=== PATIENT | female | born 1985 | race Caucasian/White ===

== ENCOUNTER → 2017-08-14 | Outpatient (CLI) | payer MEDICAID ==
--- NOTE | 2017-08-17 08:58 | MM ---
Reason for exam: screening (asymptomatic). Baseline mammogram. History: Family history of breast cancer in paternal aunt. Physical Findings: Nurse did not find any significant physical abnormalities on exam. MG 3D Diag Mammo W/Cad NATASHA Bilateral CC and MLO view(s) were taken. There are scattered fibroglandular densities. Asymmetric skin thickening left breast. These results were verbally communicated with the patient and result sheet given to the patient on 08/14/17. ASSESSMENT: Suspicious, BI-RAD 4 RECOMMENDATION: Surgical consultation of the left breast. Called Dr. Lake with mammographic findings and has scheduled an appointment for the patient for 08/20/17 at 3:[address] Valentin. PRELIMINARY REPORT CALLED AND FAXED TO DR. VALENTIN ON 08/17/17.
== END | disposition home or self-care (01) ==
LOC: RADMAMWWP 08:44
PROVIDERS: ATTEND Obstetrics & Gynecology
DX: N61.0 Mastitis without abscess (principal); Z80.3 Family history of malignant neoplasm of breast
CPT/HCPCS: 77062; 77066

== ENCOUNTER → 2017-08-20 | Outpatient (CLI) | payer MEDICAID ==
[2017-08-20 15:18] VITALS: BP 118/67; PULSE 80; BMI 35.9
--- NOTE | 2017-08-20 16:27 | P.GSHP ---
History of Present Illness H&P Date: 08/20/17 Patient states she noted a red spot in her left breast and the skin has gotten thicker and is not red at this time. The patient denies any pain or pruritus at this site. It is been present for several months. She states that it is located right at the area where her bra rubs. She has no changes in the right breast. The patient denies any masses or lumps in her breasts. A bilateral mammogram was performed which revealed some skin thickening in the left but no dominant masses or nodules of concern. The patient has had a history of acne on her breast in the past. Wnomexx-rjyp-ovyrrbiun-every-day,- additionally-patient drinks coffee several times a month, she does not drink sodas nor drink tea. The patient does not smoke nor she exposed to secondhand smoke. family history: Paternal aunt breast cancer in her 50s Paternal cousin breast cancer in her 40s Menarche: 18 Pregnancies: 1 at age 28 she did not breast feed BCP: Patient was on control pills from [age], she was off for about a year, with the of her daughter: she was put back on at 28 to help with acne and for control- she was on for 3 years, patient gained weight and therefore stopped the BCP; she subsequently lost 30 pounds. That was at the age of 31. At 31 she went back on BCP for approximately 5 months and during that time gained 20 pounds she therefore recently stopped again and over the last month has lost 5 pounds. Past surgical history: 1. dermoid cyst removed from right ovary, the ovary removed Past medical history: 1. Scoliosis 2. cyst on the left ovary at times Social history: 1. Smoking: Negative 2. Alcohol: Negative 3. Drugs: Negative - Constitutional Constitutional: Denies chills, Denies fever - EENT Eyes: denies blurred vision, denies pain Ears: deny: decreased hearing, tinnitus - Breasts Breasts: bilateral: as per HPI - Cardiovascular Cardiovascular: Denies chest pain, Denies shortness of breath - Respiratory Respiratory: Denies cough, Denies 7 - Gastrointestinal Gastrointestinal: Denies abdominal pain, Denies diarrhea, Denies nausea, Denies vomiting - Genitourinary (Female) Genitourinary: Denies dysuria, Denies hematuria - Menstruation Comment: irregular sporadic since she is off control pills - Musculoskeletal Musculoskeletal: Denies myalgias - Integumentary Integumentary: Reports as per HPI - Neurological Neurological: Denies numbness, Denies weakness - Psychiatric Psychiatric: Denies anxiety, Denies depression - Endocrine Endocrine: Denies fatigue, Denies weight change - Hematologic/Lymphatic Comment: none - Allergic/Immunologic Allergic/Immunologic: Reports seasonal allergies Past Medical History Past Medical History: No Reported History Additional Past Medical History / Comment(s): scoliosis. Obstetric history: This is her first and she has had care with Dr Patel since 9 weeks gestation. A neg, abs neg, Rub imm, RPR NR, Hep B neg, toxo neg. Normal anatomy US at 19 weeks. Normal 1hr GTT, rhogam given 08-18-13. right ovary removed (dermoid cyst) 2010 History of Any Multi-Drug Resistant Organisms: None Reported Past Surgical History: No Surgical Hx Reported Additional Past Surgical History / Comment(s): oopherectomy-dermoid Past Anesthesia/Blood Transfusion Reactions: No Reported Reaction Past Psychological History: No Psychological Hx Reported Smoking Status: Never smoker Past Alcohol Use History: None Reported Past Drug Use History: None Reported - Past Family History Mother Family Medical History: Hyperlipidemia, Thyroid Disorder Additional Family Medical History / Comment(s): endeometrosis uterus removed at age 32 Father Brother(s) Family Medical History: Diabetes Mellitus Medications and Allergies Home Medications Medication Instructions Recorded Confirmed Type Ibuprofen [Motrin] 600 mg PO Q6HR PRN #30 tab 10/13/15 08/20/17 Rx Allergies Allergy/AdvReac Type Severity Reaction Status Date / Time No Known Allergies Allergy Verified 10/12/15 23:38 Surgical - Exam Vital Signs Pulse BP Pulse Ox 80 118/67 97 08/20/17 15:13 08/20/17 15:13 08/20/17 15:13 - General obese - Eyes normal ocular movement - ENT no hearing loss, no congestion - Neck no masses, trachea midline - Respiratory normal respiratory effort, clear to auscultation - Cardiovascular Rhythm: regular Heart Sounds: normal: S1, S2 - Abdomen Abdomen: soft, non tender, no guarding, no rigid, no rebound - Integumentary Thickening of the skin the the inferior aspect of the nipple areolar complex on the left at 6:00 this series a proximally 5 cm x 3 cm in size there is no erythema but there appears to be prominence of the pores giving an orange peel appearance - Neurologic no disoriented, no combative - Psychiatric oriented to time, oriented to person, oriented to place, speech is normal, memory intact Breast examination: Right breast: Multiple positional exam no dominant masses or nodules of concern Right axilla: No adenopathy of concern Left breast: Multiple positional exam no dominant masses or nodules of concern within the breast however there is thickening of the skin at the inferior aspect in the 6:00 Left axilla: No adenopathy of concern Results Mammogram reviewed, thickening of skin in the inferior aspect of the breast Assessment and Plan Assessment: Impression/plan: 1. Thickening of the inferior skin on the left breast 2. Fibrocystic breast changes 3. Irregular periods Plan: 1. punch biopsy of the skin of the left breast 2. Depending on results of above further recommendation to follow Risk and benefits of punch biopsy were discussed with the patient and her . And they wish to proceed. Cc: Dr. Lake, Dr. Greg Ruiz
--- NOTE | 2017-08-20 16:30 | P.OP ---
Date of Procedure: 08/20/17 Preoperative Diagnosis: Thickening of skin in the inferior periareolar aspect of the left breast approximately 6:00 Postoperative Diagnosis: same Procedure(s) Performed: Punch biopsy skin of the breast Anesthesia: local Surgeon: Gina Valentin Estimated Blood Loss (ml): 0 Pathology: other (Skin of the breast) Condition: stable Disposition: same day Indications for Procedure: 32-year-old white female who presented with thickened skin in the inferior periareolar area of the left breast at 6:00 Operative Findings: Thickened skin Description of Procedure: Risk and benefits of punch biopsy of the skin were discussed with the patient and her . The skin was prepped using Betadine. 1% lidocaine was used to anesthetize the area of concern. A 4 mm punch biopsy was used to obtain a full-thickness sample of skin. This was removed and sent to pathology. The skin was then closed using a 4-0 nylon suture. The patient tolerated the procedure in stable condition.
== END | disposition home or self-care (01) ==
LOC: WWCWWP 15:05
PROVIDERS: ATTEND Surgery
DX: N60.32 Fibrosclerosis of left breast (principal)
CPT/HCPCS: 88305

== ENCOUNTER → 2017-08-27 | Outpatient (CLI) | payer MEDICAID ==
[2017-08-27 15:53] VITALS: BP 107/74; PULSE 88; BMI 35.9
--- NOTE | 2017-08-27 16:14 | P.PN ---
Progress Note - Text Progress Note Date: 08/27/17 The patient is a 32-year-old white female who comes in status post punch biopsy of the left breast. This was done secondary to an area of dermal thickening. The pathology reveals benign skin with mild superficial dermal fibrosis. It did not reveal a discrete lesion or pathologic process. The patient has some mild erythema of the area, she states she is allergic to adhesive. Sutures were removed. A gauze dressing was applied without tape. The patient is recommended to follow with her primary care physician and possibly dermatology. At this time the patient does not have any discrete mass or lesion within the breast to explain the dermal thickening. Impression: 1. Dermal thickening of the left inferior breast, no evidence of any breast cancer or primary breast pathology. Plan: 1. Follow-up with primary care doctor 2. Consider dermatology consultation Cc: Dr. Greg Ruiz, Dr. Amador Lake
== END ==
LOC: WWCWWP 15:36
PROVIDERS: ATTEND Surgery
DX: Z53.9 Procedure and treatment not carried out, unspecified reason (principal)

== ENCOUNTER 2017-09-25 19:23 | Emergency (ER) | payer MEDICAID ==
[2017-09-25 20:28] LABS: Basophils % (A) 0 %; Eosinophils # (A) 0.2 k/uL (0-0.7); Eosinophils % (A) 2 %; HCT 39.2 % (34.0-46.0); HGB 13.2 gm/dL (11.4-16.0); Lymphocytes # (A) 2.9 k/uL (1.0-4.8); Lymphocytes % (A) 28 %; MCH 27.7 pg (25.0-35.0); MCHC 33.6 g/dL (31.0-37.0); MCV 82.4 fL (80.0-100.0); Mean Platelet Volume 8.1; Monocytes # (A) 0.7 k/uL (0-1.0); Monocytes % (A) 7 %; Neutrophils # (A) 6.3 k/uL (1.3-7.7); Neutrophils % (A) 61 %; Platelet Count 240 k/uL (150-450); RBC 4.75 m/uL (3.80-5.40); RDW 13.7 % (11.5-15.5); WBC 10.4 k/uL (3.8-10.6)
--- NOTE | 2017-09-25 20:38 | XR ---
EXAMINATION TYPE: XR chest 2V DATE OF EXAM: 09/25/2017 COMPARISON: NONE HISTORY: Dysrhythmia TECHNIQUE: Frontal and lateral views of the chest are obtained. FINDINGS: Heart and mediastinum are normal. Lungs are clear. Diaphragm is normal. Bony thorax appear s normal. IMPRESSION: Normal chest. No change.
[2017-09-25 20:41] LABS: ALT 40 U/L (9-52); AST 31 U/L (14-36); Albumin 4.1 g/dL (3.5-5.0); Alkaline Phosphatase 118 U/L (38-126); Anion Gap 9 mmol/L; Blood Urea Nitrogen 16 mg/dL (7-17); Calcium 9.5 mg/dL (8.4-10.2); Carbon Dioxide 26 mmol/L (22-30); Chloride 106 mmol/L (98-107); Glucose 103 mg/dL (74-99); Potassium 4.1 mmol/L (3.5-5.1); Sodium 141 mmol/L (137-145); Total Bilirubin 0.5 mg/dL (0.2-1.3); Total Protein 7.6 g/dL (6.3-8.2)
[2017-09-25 20:43] LABS: Creatine Kinase 89 U/L (30-135); Prothrombin Time 9.6 sec (9.0-12.0)
[2017-09-25 20:56] LABS: Creatine Kinase MB 0.3 ng/mL (0.0-2.4); Troponin I <0.012 ng/mL (0.000-0.034)
[2017-09-25 20:57] LABS: Partial Thromboplastin Time 21.3 sec (22.0-30.0)
[2017-09-25 21:44] VITALS: RESP 18
[2017-09-25 21:51] LABS: Appearance,Urine Clear (Clear); Bilirubin,Urine Negative (Negative); Blood,Urine Negative (Negative); Color,Urine Yellow; Glucose,Urine (UA) Negative (Negative); Ketones,Urine Negative (Negative); Leukocyte Esterase,Urine Negative (Negative); Nitrite,Urine Negative (Negative); PH, Urine 6.5 (5.0-8.0); Protein,Urine Trace (Negative); Specific Gravity,Urine 1.029 (1.001-1.035)
--- NOTE | 2017-09-25 22:12 | ED ---
Arrhythmia/Palpitations HPI - General Chief Complaint: Arrhythmia/Palpitations Stated Complaint: Palpations Source: patient, family Mode of arrival: ambulatory Limitations: no limitations - History of Present Illness Initial Comments: Dictation was produced using [employer] dictation software. please excuse any grammatical, word or spelling errors. Chief Complaint: 32-year-old female presents with chief complaint of palpitations History of Present Illness: Patient is a 32-year-old female no scene. Medical history presents with palpitations. States she's been having these symptoms for approximately 2 days. She feels a fluttering in her chest that would last for several seconds. She has been seen by [facility] before. She was instructed to her Holter monitor in the past however was not able to tolerate it secondary to the Holter monitor about sticking to her skin. Patient does not have a family history of arrhythmias. I sent patient suffered licsw was approximately 10 years ago. Denies any chest pain. The ROS documented in this emergency department record has been reviewed and confirmed by me. Those systems with pertinent positive or negative responses have been documented in the HPI. All other systems are other negative and/or noncontributory. - Related Data Home Medications Medication Instructions Recorded Confirmed Ibuprofen [Motrin Ib] 200 mg PO Q6H PRN 09/25/17 09/25/17 Allergies Allergy/AdvReac Type Severity Reaction Status Date / Time No Known Allergies Allergy Verified 09/25/17 19:49 Review of Systems ROS Statement: Those systems with pertinent positive or pertinent negative responses have been documented in the HPI. ROS Other: All systems not noted in ROS Statement are negative. Past Medical History Past Medical History: No Reported History Additional Past Medical History / Comment(s): scoliosis. Obstetric history: This is her first and she has had care with Dr Patel since 9 weeks gestation. A neg, abs neg, Rub imm, RPR NR, Hep B neg, toxo neg. Normal anatomy US at 19 weeks. Normal 1hr GTT, rhogam given 08-18-13. right ovary removed (dermoid cyst) 2010 History of Any Multi-Drug Resistant Organisms: None Reported Past Surgical History: No Surgical Hx Reported Additional Past Surgical History / Comment(s): oopherectomy-dermoid Past Anesthesia/Blood Transfusion Reactions: No Reported Reaction Past Psychological History: No Psychological Hx Reported Smoking Status: Never smoker Past Alcohol Use History: None Reported Past Drug Use History: None Reported - Past Family History Mother Family Medical History: Hyperlipidemia, Thyroid Disorder Additional Family Medical History / Comment(s): endeometrosis uterus removed at age 32 Father Brother(s) Family Medical History: Diabetes Mellitus General Exam - General Exam Comments Initial Comments: PHYSICAL EXAM: General Impression: Alert and oriented x3, not in acute distress HEENT: Normocephalic atraumatic, extra-ocular movements intact, pupils equal and reactive to light bilaterally, mucous membranes moist. Cardiovascular: Heart regular rate and rhythm, S1&S2 audible, no murmurs, rubs or gallops Chest: Lungs clear to auscultation bilaterally, no rhonchi, no wheeze, no rales Abdomen: Bowel sounds present, abdomen soft, non-tender, non-distended, no organomegaly Musculoskeletal: Pulses present and equal in all extremities, no peripheral edema Motor: Power 5/5 bilaterally, no focal deficits noted Neurological: CN II-XII grossly intact, no focal motor or sensory deficits noted Skin: Intact with no visualized rashes Psych: Normal affect and mood Limitations: no limitations Course Vital Signs 09/25/17 09/25/17 09/25/17 19:25 20:15 21:30 Temperature 98.7 F Pulse Rate 97 92 86 Respiratory 20 20 18 Rate Blood Pressure 125/85 134/76 104/61 O2 Sat by Pulse 99 99 99 Oximetry Medical Decision Making - Medical Decision Making ED course: Year old female with chief complaint of palpitations. Signs upon arrival are within acceptable limits. Laboratory evaluation obtained showing no acute processes. Two-view chest x-ray shows no acute issues. EKGs benign. Discussed patient that her workup is essentially negative however she should follow-up with [facility] for possible Holter monitoring. Shouldn't told to return to the emergency Department with any worsening palpitations. EKG Interpretation: A 12 lead EKG was obtained. It was interpreted by myself and attending physician. There is a P wave before every QRS complex. Rate is 90. Rhythm is normal sinus rhythm, UT interval 160, QRS 92, QTc 445. QT is not prolonged. No ST segment depression or elevation. . Overall, this EKG is unremarkable - Lab Data Result diagrams: 09/25/17 20:10 09/25/17 20:10 Lab Results 09/25/17 09/25/17 09/25/17 Range/Units 20:05 20:10 20:10 WBC 10.4 (3.8-10.6) k/uL RBC 4.75 (3.80-5.40) m/uL Hgb 13.2 (11.4-16.0) gm/dL Hct 39.2 (34.0-46.0) % MCV 82.4 (80.0-100.0) fL MCH 27.7 (25.0-35.0) pg MCHC 33.6 (31.0-37.0) g/dL RDW 13.7 (11.5-15.5) % Plt Count 240 (150-450) k/uL Neutrophils % 61 % Lymphocytes % 28 % Monocytes % 7 % Eosinophils % 2 % Basophils % 0 % Neutrophils # 6.3 (1.3-7.7) k/uL Lymphocytes # 2.9 (1.0-4.8) k/uL Monocytes # 0.7 (0-1.0) k/uL Eosinophils # 0.2 (0-0.7) k/uL Basophils # 0.0 (0-0.2) k/uL PT (9.0-12.0) sec INR (<1.2) APTT (22.0-30.0) sec Sodium (137-145) mmol/L Potassium (3.5-5.1) mmol/L Chloride (98-107) mmol/L Carbon Dioxide (22-30) mmol/L Anion Gap mmol/L BUN (7-17) mg/dL Creatinine (0.52-1.04) mg/dL Est GFR (CKD-EPI)AfAm (>60 ml/min/1.73 sqM) Est GFR (CKD-EPI)NonAf (>60 ml/min/1.73 sqM) Glucose (74-99) mg/dL Calcium (8.4-10.2) mg/dL Magnesium (1.6-2.3) mg/dL Total Bilirubin (0.2-1.3) mg/dL AST (14-36) U/L ALT (9-52) U/L Alkaline Phosphatase (38-126) U/L Total Creatine Kinase 89 (30-135) U/L CK-MB (CK-2) 0.3 (0.0-2.4) ng/mL CK-MB (CK-2) Rel Index 0.3 Troponin I <0.012 (0.000-0.034) ng/mL Total Protein (6.3-8.2) g/dL Albumin (3.5-5.0) g/dL TSH (0.465-4.680) mIU/L Urine Color Urine Appearance (Clear) Urine pH (5.0-8.0) Ur Specific [place] (1.001-1.035) Urine Protein (Negative) Urine Glucose (UA) (Negative) Urine Ketones (Negative) Urine Blood (Negative) Urine Nitrite (Negative) Urine Bilirubin (Negative) Urine Urobilinogen (<2.0) mg/dL Ur Leukocyte Esterase (Negative) Urine HCG, Qual Not Detected (Not Detectd) 09/25/17 09/25/17 09/25/17 Range/Units 20:10 20:10 20:52 WBC (3.8-10.6) k/uL RBC (3.80-5.40) m/uL Hgb (11.4-16.0) gm/dL Hct (34.0-46.0) % MCV (80.0-100.0) fL MCH (25.0-35.0) pg MCHC (31.0-37.0) g/dL RDW (11.5-15.5) % Plt Count (150-450) k/uL Neutrophils % % Lymphocytes % % Monocytes % % Eosinophils % % Basophils % % Neutrophils # (1.3-7.7) k/uL Lymphocytes # (1.0-4.8) k/uL Monocytes # (0-1.0) k/uL Eosinophils # (0-0.7) k/uL Basophils # (0-0.2) k/uL PT 9.6 (9.0-12.0) sec INR 1.0 (<1.2) APTT 21.3 L (22.0-30.0) sec Sodium 141 (137-145) mmol/L Potassium 4.1 (3.5-5.1) mmol/L Chloride 106 (98-107) mmol/L Carbon Dioxide 26 (22-30) mmol/L Anion Gap 9 mmol/L BUN 16 (7-17) mg/dL Creatinine 0.90 (0.52-1.04) mg/dL Est GFR (CKD-EPI)AfAm >90 (>60 ml/min/1.73 sqM) Est GFR (CKD-EPI)NonAf 87 (>60 ml/min/1.73 sqM) Glucose 103 H (74-99) mg/dL Calcium 9.5 (8.4-10.2) mg/dL Magnesium 2.0 (1.6-2.3) mg/dL Total Bilirubin 0.5 (0.2-1.3) mg/dL AST 31 (14-36) U/L ALT 40 (9-52) U/L Alkaline Phosphatase 118 (38-126) U/L Total Creatine Kinase (30-135) U/L CK-MB (CK-2) (0.0-2.4) ng/mL CK-MB (CK-2) Rel Index Troponin I (0.000-0.034) ng/mL Total Protein 7.6 (6.3-8.2) g/dL Albumin 4.1 (3.5-5.0) g/dL TSH 1.790 (0.465-4.680) mIU/L Urine Color Yellow Urine Appearance Clear (Clear) Urine pH 6.5 (5.0-8.0) Ur Specific [place] 1.029 (1.001-1.035) Urine Protein Trace H (Negative) Urine Glucose (UA) Negative (Negative) Urine Ketones Negative (Negative) Urine Blood Negative (Negative) Urine Nitrite Negative (Negative) Urine Bilirubin Negative (Negative) Urine Urobilinogen 2.0 (<2.0) mg/dL Ur Leukocyte Esterase Negative (Negative) Urine HCG, Qual (Not Detectd) Disposition Clinical Impression: Palpitations Disposition: HOME SELF-CARE Condition: Good Instructions: Palpitations (ED) Is patient prescribed a controlled substance at d/c from ED?: No Referrals: Greg Ruiz MD [Primary Care Provider] - 1-2 days Time of Disposition: 22:12
[2017-09-25 22:35] VITALS: BP 114/62; PULSE 72; TEMP 98.3
== END 2017-09-25 22:30 | disposition home or self-care (01) ==
LOC: EC 19:23
DX: R00.2 Palpitations (principal)
CPT/HCPCS: 36415; 71046; 80053; 81003; 81025; 82550; 82553; 83735; 84443; 84484; 85025; 85610; 85730; 93005; 99285

== ENCOUNTER 2017-11-16 09:16 | Observation (INO) | payer MEDICAID ==
[2017-11-16 10:34] LABS: Basophils % (A) 0 %; Eosinophils # (A) 0.3 k/uL (0-0.7); Eosinophils % (A) 4 %; HCT 40.1 % (34.0-46.0); HGB 12.9 gm/dL (11.4-16.0); Lymphocytes # (A) 1.9 k/uL (1.0-4.8); Lymphocytes % (A) 30 %; MCHC 32.3 g/dL (31.0-37.0); MCV 83.7 fL (80.0-100.0); Mean Platelet Volume 8.5; Monocytes # (A) 0.4 k/uL (0-1.0); Monocytes % (A) 6 %; Neutrophils # (A) 3.7 k/uL (1.3-7.7); Neutrophils % (A) 57 %; Platelet Count 228 k/uL (150-450); RBC 4.78 m/uL (3.80-5.40); RDW 13.7 % (11.5-15.5); WBC 6.5 k/uL (3.8-10.6)
--- NOTE | 2017-11-16 10:34 | XR ---
EXAMINATION TYPE: XR chest 2V DATE OF EXAM: 11/16/2017 COMPARISON: 09/25/2017 HISTORY: Chest pain TECHNIQUE: Frontal and lateral views of the chest are obtained. FINDINGS: There is no focal air space opacity, pleural effusion, or pneumothorax seen. The cardiac silhouette size is within normal limits. The osseous structures are intact.. Minimal degenerative c hanges of the thoracic spine are noted. IMPRESSION: No acute cardiopulmonary process.
[2017-11-16 10:50] LABS: INR 0.9 (<1.2); Prothrombin Time 9.5 sec (9.0-12.0)
--- NOTE | 2017-11-16 10:55 | ED ---
Chest Pain HPI - General Chief Complaint: Chest Pain Stated Complaint: Chest tightness Time Seen by Provider: 11/16/17 10:00 Source: patient Mode of arrival: wheelchair Limitations: no limitations - History of Present Illness Initial Comments: 32-year-old female with past medical history of ovarian cysts and previous right side oophrectomy presenting for chief complaint of chest tightness, palpatations x3 months. Patient states that for the past few months she has had heart palpitations on and off she was seen by her primary care Dr. Ruiz who ordered an EKG and heart monitor, there were no abnormalities noted. He is scheduling an echo within the next month. There has been no cardiology consult. The past month patient has had random episodes of chest tightness and she felt as though it was "thumping hard", she states she isn't episodes at night her fingertips felt numb and she was dizzy when she stood up. Yesterday at 5 PM she was walking with her daughter she states she had an episode of palpitations which caused her feel lightheaded, after a few minutes these went away. She denies noting a pattern of when the symptoms occur she states they happen at rest and with activity all at random times. This morning patient states that she fell off, she denied any chest pain, shortness of breath. She states she just did not feel right. She presents emergency department for evaluation. She does admit to use shortness of breath randomly occurring over the course in the past 3 months, she denies current shortness of breath. Patient denies any dyspnea on exertion, fever, chills, IV drug use, his family history of sudden , back pain, abdominal pain, nausea or vomiting, tingling , jaw pain, calf pain, control use, recent travel, recent surgery, hemoptysis, dysuria or hematuria, constipation or diarrhea, headaches or visual changes, or any other complaints. Upon arrival to the emergency department patient appears well in no acute distress, there is no evidence of diaphoresis patient's vital signs stable heart rate 74, blood pressure 122/74. - Related Data Home Medications Medication Instructions Recorded Confirmed No Known Home Medications 11/16/17 11/16/17 Allergies Allergy/AdvReac Type Severity Reaction Status Date / Time No Known Allergies Allergy Verified 11/16/17 10:25 Review of Systems ROS Statement: Those systems with pertinent positive or pertinent negative responses have been documented in the HPI. ROS Other: All systems not noted in ROS Statement are negative. Constitutional: Reports: night sweats (pt admits to occassional nigh sweats). Denies: fever, chills ENT: Denies: ear pain, throat pain, dental pain Respiratory: Reports: cough (cough on and off for last few weeks). Denies: dyspnea Cardiovascular: Reports: as per HPI (chest tightness), palpitations. Denies: chest pain, dyspnea on exertion, orthopnea, edema, syncope Endocrine: Reports: fatigue (fatigue past 3 months) Gastrointestinal: Denies: abdominal pain, nausea, vomiting, diarrhea, constipation, hematemesis, melena, hematochezia Genitourinary: Denies: urgency, dysuria, frequency, hematuria Musculoskeletal: Denies: back pain Skin: Denies: rash, lesions, change in color Neurological: Reports: as per HPI, numbness. Denies: headache, weakness, paresthesias, confusion, abnormal gait, vertigo EKG Findings - EKG Comments: EKG Findings:: Ventricular rate 60 bpm, KY interval 152 ms, QRS duration 84 ms, QT/QTC 396/424 ms this is a normal sinus rhythm. There is no evidence of delta wave, Brugada syndrome, ST elevation or T-wave inversion. No noted arrhythmias. Normal EKG Past Medical History Past Medical History: No Reported History Additional Past Medical History / Comment(s): scoliosis. Obstetric history: This is her first and she has had care with Dr Patel since 9 weeks gestation. A neg, abs neg, Rub imm, RPR NR, Hep B neg, toxo neg. Normal anatomy US at 19 weeks. Normal 1hr GTT, rhogam given 08-18-13. right ovary removed (dermoid cyst) 2010 History of Any Multi-Drug Resistant Organisms: None Reported Past Surgical History: No Surgical Hx Reported Additional Past Surgical History / Comment(s): oopherectomy-dermoid Past Anesthesia/Blood Transfusion Reactions: No Reported Reaction Past Psychological History: No Psychological Hx Reported Smoking Status: Never smoker Past Alcohol Use History: None Reported Past Drug Use History: None Reported - Past Family History Mother Family Medical History: Hyperlipidemia, Thyroid Disorder Additional Family Medical History / Comment(s): endeometrosis uterus removed at age 32 Father Brother(s) Family Medical History: Diabetes Mellitus General Exam - General Exam Comments Initial Comments: General: The patient is awake and alert, in no distress, and does not appear acutely ill. Negative Shay sign. No evidence of diaphoresis Eye: Pupils are equal, round and reactive to light, extra-ocular movements are intact. No nystagmus. There is normal conjunctiva bilaterally. No signs of icterus. Ears, nose, mouth and throat: There are moist mucous membranes and no oral lesions. Neck: The neck is supple, there is no tenderness or JVD. Cardiovascular: There is a regular rate and rhythm. No murmur, rub or gallop is appreciated. No tenderness to patient over the anterior chest wall. Respiratory: Lungs are clear to auscultation, respirations are non-labored, breath sounds are equal. No wheezes, stridor, rales, or rhonchi. Gastrointestinal: Soft, non-distended, non-tender abdomen without masses or organomegaly noted. There is no rebound or guarding present. Bowel sounds are unremarkable. Musculoskeletal: Normal ROM, no tenderness. Strength 5/5. Sensation intact. Radial pulses equal bilaterally 2+. Neurological: A&O x 3. CN II-XII intact, There are no obvious motor or sensory deficits. Coordination appears grossly intact. Speech is normal. Skin: Skin is warm and dry and no rashes or lesions are noted. No noted lower extremity edema. Psychiatric: Cooperative, appropriate mood & affect, normal judgment. Limitations: no limitations Course Vital Signs 11/16/17 11/16/17 11/16/17 09:19 12:20 13:23 Temperature 98.4 F 97.9 F Pulse Rate 74 71 68 Respiratory 18 17 18 Rate Blood Pressure 122/74 104/62 117/66 O2 Sat by Pulse 98 100 100 Oximetry 11/16/17 11/16/17 11/16/17 14:35 17:06 18:58 Temperature 97.1 F L 97.6 F 97.8 F Pulse Rate 69 70 70 Respiratory 18 18 18 Rate Blood Pressure 104/61 106/57 109/67 O2 Sat by Pulse 99 100 98 Oximetry - Reevaluation(s) Reevaluation #1: Pt states that she has had episodes of the palpatations during stay, none currently. 11/16/17 12:03 Chest Pain MDM - MDM 32 with 3 month history of palpitations and chest tightness concerning for arrhythmia. EKG obtained revealing normal sinus rhythm, normal EKG. Chest x-ray within normal limits no enlargement of the cardiac silhouette. Labs as noted above. Cardiac profile negative. Upon reevaluation patient states that she has had episodes of palpitations during her stay. She states she continues of dull chest tightness. Although she does not appear in acute distress. At this time given continuation of symptoms we feel pt should be admitted to observation for telemetry, repeat troponins and cardiology consultation. Case discussed with Dr. Flores in detail who spoke with Dr. Avery the admitting provider. Pt given ASA 325mg and nitro ointment for chest tightness although we have low suspicion for ACS at this time. Pt transferred to floor in stable condition. Case discussed with Dr. Flores throughout pt course in the emergency department. Disposition Clinical Impression: Chest tightness, Heart palpitations Disposition: ADMITTED IP TO THIS HOSP Condition: Stable Decision to Admit Reason: Admit from EC Decision Date: 11/16/17 Decision Time: 13:44
[2017-11-16 11:01] LABS: Partial Thromboplastin Time 21.1 sec (22.0-30.0)
[2017-11-16 11:07] LABS: ALT 28 U/L (9-52); AST 22 U/L (14-36); Albumin 4.1 g/dL (3.5-5.0); Alkaline Phosphatase 108 U/L (38-126); Anion Gap 8 mmol/L; Blood Urea Nitrogen 15 mg/dL (7-17); Calcium 9.7 mg/dL (8.4-10.2); Carbon Dioxide 26 mmol/L (22-30); Chloride 107 mmol/L (98-107); Creatine Kinase 86 U/L (30-135); Glucose 104 mg/dL (74-99); Potassium 4.4 mmol/L (3.5-5.1); Sodium 141 mmol/L (137-145); Total Bilirubin 0.4 mg/dL (0.2-1.3); Total Protein 7.6 g/dL (6.3-8.2)
[2017-11-16 11:19] LABS: Creatine Kinase MB 0.4 ng/mL (0.0-2.4); Troponin I <0.012 ng/mL (0.000-0.034)
[2017-11-16] MEDS ORDERED: SODIUM CHLORIDE 0.9% 1,000 ML IV ONE (11:55)
[2017-11-16] MEDS ORDERED: NALOXONE 0.4 MG/ML 1 ML VIAL IV PRN (13:40)
[2017-11-16] MEDS ORDERED: ASPIRIN 325 MG TAB PO STA (13:42)
[2017-11-16] MEDS: NITROGLYCERIN OINT 1 INCH/GM PACKET TOPICAL SCH (17:40)
[2017-11-16 19:55] VITALS: RESP 16
[2017-11-16] MEDS ORDERED: ACETAMINOPHEN TAB 325 MG TAB PO PRN (20:30)
--- NOTE | 2017-11-16 23:41 | HP ---
HISTORY AND PHYSICAL DATE OF ADMISSION: 11/16/2017 DATE OF SERVICE: 11/16/2017 PRESENTING COMPLAINT: Palpitations. HISTORY OF PRESENTING COMPLAINT: This is a very pleasant 32-year-old patient of Dr. Ruiz. Chronic stable conditions include scoliosis. Patient has been having palpitations on and off for quite some time, more so recently. Patient did see Dr. Ruiz for the same, was given a heart monitor, which she wore for a month; I do not have the results. Patient was told to have a 2-D echocardiogram, but patient got busy with a new job. These episodes have been coming on more frequently, sometimes daily, sometimes associated with dizziness, lightheadedness. The patient has a watch that sometimes takes the rate; today her heart rate even had gone up to 150. In 6 months patient has put on about 30 pounds. Denies any fever or chills. The patient is admitted for the same. REVIEW OF SYSTEMS: CONSTITUTIONAL: Tired. HEENT: None. RESPIRATORY: None. CARDIOVASCULAR: As above. GASTROINTESTINAL: None. GENITOURINARY: None. MUSCULOSKELETAL: Some scoliosis. DERMATOLOGICAL: None. HEMATOLOGICAL: None. LYMPHATICS: None. PSYCHIATRY: Slightly anxious. NEUROLOGICAL: None. PAST MEDICAL HISTORY: Scoliosis. PAST SURGICAL HISTORY: Oophorectomy for dermoid cyst. 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 . No smoking. No alcohol. No recreational drugs. FAMILY HISTORY: Hyperlipidemia, thyroid disorder. HOME MEDICATIONS: None. ALLERGIES: NONE. PHYSICAL EXAMINATION: Temperature 97.1, pulse 59, respiration 18, blood pressure 104/61, pulse ox 99% on room air. GENERAL APPEARANCE: Well built; BMI 36.2. Lying in bed, comfortable. EYES: Pupils equal. Conjunctivae normal. HEENT: External appearance of nose and ears normal. Oral cavity normal. Acne present. NECK: JVD not raised. Mass not palpable. RESPIRATORY: Effort normal. LUNGS: Fair air entry. CARDIOVASCULAR: First and second sounds normal. No edema. ABDOMEN: Soft, non-tender. Liver and spleen not palpable. LYMPHATIC: No lymph node palpable in neck or axillae. PSYCHIATRY: Alert and oriented x3. Mood and affect normal. NEUROLOGICAL: Pupils equal. Cranial nerves grossly intact. Power and sensation grossly intact. INVESTIGATIONS: White count 6.5, hemoglobin 12.9, potassium 4.4. Troponin negative. EKG tracing, personally reviewed by me, shows normal sinus rhythm. Chest x-ray film, personally reviewed by me, shows normal lung fitch. ASSESSMENT: 1. This is a patient who presented with episodes of palpitations, rather symptomatic, going on for some time. She has had a Holter monitor for about a month by her family doctor, Dr. Ruiz; does not have the results of the same. These episodes have become more symptomatic, with rate going up to the 150s. 2. Obesity with a body mass index of 36.2. 3. Rule out thyroid disorder. 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 We may use Lopressor 12.5 p.o. q.8 p.r.n. for the symptomatic episodes. Will send off a thyroid function test in the morning. The patient will be seen by Cardiology, will get a 2-D echocardiogram done. Care was discussed with the patient. She was also advised to lose weight. Discussed with her also at the bedside. MMODL / UTEN: [id number] /
[2017-11-17] MEDS: NITROGLYCERIN OINT 1 INCH/GM PACKET TOPICAL SCH ×3 (01:44→13:00)
[2017-11-17 07:18] VITALS: BP 108/70; PULSE 69; TEMP 98.1
--- NOTE | 2017-11-17 08:51 | CONS ---
CONSULTATION This is a 32-year-old lady who works as a [place] in the [employer]. She is a fairly active person, but does not have a formal exercise program. Since September, she has been experiencing episodes of palpitations and had one-week event monitor apparently that was unremarkable performed through her PCP, but I do not have the report. Yesterday she was walking with her daughter and felt some palpitations and also some tightness in the chest and came into the hospital. The symptoms have resolved. Apparently she received a nitroglycerin without any relief in a consistent manner. She is asymptomatic at the time of my evaluation. Her palpitations used to happen on and off before, but they become more frequent since September 23 or so. She is asymptomatic at the time of my evaluation. EKGs and troponins are normal. The thyroid function is also unremarkable and no arrhythmia was detected here. PAST MEDICAL HISTORY: 1. Remarkable for some ovarian cyst resection with an ovariotomy. 2. No evidence of any hypertension, diabetes, myocardial infarction or CVA. MEDICATIONS: None. ALLERGIES: None. REVIEW OF SYSTEMS: Unremarkable other than above-mentioned facts. PHYSICAL EXAMINATION: On examination, blood pressure is 108/70, pulse rate is 70 per minute. HEENT: Unremarkable. Fundus was not examined by me. Neck is supple. No JVD. I do not hear a carotid bruit. There is no thyromegaly. Heart exam reveals S1, S2 heard normally without a rub, murmur or gallop. Lungs are clear. Abdomen is soft, nontender. Lower extremities reveal normal pulses. No edema. Central nervous system is normal. EKG revealed sinus mechanism, no acute changes. IMPRESSION: 1. Atypical chest pain. 2. Palpitations without any documented arrhythmia so far. RECOMMENDATIONS: I am recommending that we obtain echocardiogram, perform a regular stress test and I will secure the reports of the one-week event monitor that was obtained through PCP. If the stress test and echo are unremarkable, she can be discharged and follow with her PCP. Thank you very much for the consult. MMODL / IJN: [id number] /
--- NOTE | 2017-11-17 11:38 | ECHOF ---
Referral Reason:palpitation MEASUREMENTS -------- HEIGHT: 177.8 cm WEIGHT: 114.3 kg BP: 99/63 RVIDd: 2.6 cm (< 3.3) IVSd: 1.0 cm (0.6 - 1.1) LVIDd: 4.9 cm (3.9 - 5.3) LVPWd: 0.9 cm (0.6 - 1.1) IVSs: 1.2 cm LVIDs: 3.0 cm LVPWs: 1.3 cm LAESV Index (A-L): 13.01 ml/m Ao Diam: 2.5 cm (2.0 - 3.7) AV Cusp: 1.6 cm (1.5 - 2.6) LA Diam: 3.1 cm (2.7 - 3.8) MV E Brando: 1.28 m/s MV DecT: 206 ms MV A Brando: 0.60 m/s MV E/A Ratio: 2.14 RAP: 5.00 mmHg RVSP: 11.59 mmHg FINDINGS -------- Sinus rhythm. This was a technically difficult study with suboptimal views. The left ventricular size is normal. Left ventricular wall thickness is normal. Overall left vent ricular systolic function is normal with, an EF between 55 - 60 %. The right ventricle is normal in size and function. Normal LA size by volume 22+/-6 ml/m2. The right atrium is normal in size. 3 ml of Lumason was utilized for enhancement of images. The aortic valve is trileaflet, and appears structurally normal. No aortic stenosis or regurgitation. The mitral valve is normal. There is trace to mild mitral regurgitation. Trace tricuspid regurgitation present. Right ventricular systolic pressure is normal at < 35 mmHg. There is no evidence of pulmonary hypertension. The pulmonic valve was not well visualized. The aortic root size is normal. IVC Not well visulized. There is no pericardial effusion. CONCLUSIONS -------- 1. Sinus rhythm. 2. This was a technically difficult study with suboptimal views. 3. The left ventricular size is normal. 4. Left ventricular wall thickness is normal. 5. Overall left ventricular systolic function is normal with, an EF between 55 - 60 %. 6. Normal LA size by volume 22+/-6 ml/m2. 7. 3 ml of Lumason was utilized for enhancement of images. 8. The aortic valve is trileaflet, and appears structurally normal. No aortic stenosis or regurgitati on. 9. There is trace to mild mitral regurgitation. 10. Trace tricuspid regurgitation present. 11. Right ventricular systolic pressure is normal at < 35 mmHg. 12. There is no evidence of pulmonary hypertension. 13. The pulmonic valve was not well visualized. 14. The aortic root size is normal. 15. IVC Not well visulized. 16. There is no pericardial effusion. BEEKEEPER: Cliff Izquierdo RDCS
--- NOTE | 2017-11-17 13:00 | EST ---
EXERCISE STRESS AGE: 32 SEX: F HT: 70 WT: 252 PROTOCOL: Stress Test STAGE: 3 DURATION OF EXERCISE: 7:00 HEART RATE REST: 80 BLOOD PRESSURE REST: 133/67 MAXIMUM HEART RATE ACHIEVED: 158 MAXIMUM BLOOD PRESSURE: 181/50 85% MPHR: 162 100% MPHR: 190 METS: 8.5 INDICATIONS: Chest pain. CLINICAL INFORMATION: Baseline EKG revealed normal sinus rhythm without significant ST-T changes. There was some artifact noted. Patient walked for 7 minutes on a standard Edward protocol, achieved a maximum heart rate of 158 beats per minute which is almost 85% of predicted maximal. She developed fatigue and shortness of breath and felt a little overwhelmed at the end of the exercise. However, she did not have angina. There was no arrhythmia. By EKG criteria, this is a negative stress test with almost 85% of predicted maximal heart rate without any subjective symptoms of angina. There was no arrhythmia. IMPRESSION: Fair exercise capacity within a negative stress test and patient achieved almost 85% of her predicted maximal heart rate. MMMAXIMUSL / UTEN: [id number] /
--- NOTE | 2017-11-18 10:07 | DS ---
DISCHARGE SUMMARY DATE OF ADMISSION: 11/16/2017 DATE OF DISCHARGE: 11/17/2017 FINAL DIAGNOSES: 1. Palpitations, possibly from underlying arrhythmia. 2. Obesity, body mass index 36.2. HOSPITAL COURSE: This very pleasant lady who has been having episodes of palpitation and heart rate being picked up to be high on her watch did have monitoring done by her family doctor, but did not have the results. The symptoms became more pronounced, hence, she decided to come in. Patient did undergo a stress test and a 2-D echocardiogram, all was normal. TSH was normal. Seen by Dr. Nino Chaidez. Patient will see the integrated program teacher in the office and will get hold of the results of the monitoring. The patient was told to use Lopressor 12.5 on a p.r.n. basis up to 3 times a day if the symptoms became a problem in the meantime, also advised on weight loss. On examination, temperature 98.1, pulse 69, respiration 16, blood pressure 108/70, pulse ox 98% on room air. LUNGS: Fair entry. CARDIOVASCULAR: First and second sounds normal. LABS: The patient's troponins were negative. TSH was normal at 1.0. DISCHARGE MEDICATION: Lopressor 12.5 p.o. q.8 p.r.n. Follow up with Dr. Nino Chaidez on 12/07/2017. Follow up with Dr. Ruiz. ANA / DANETTE: [id number] /
== END 2017-11-17 13:30 | disposition home or self-care (01) ==
LOC: EC 09:16 → 3OBS 13:40
PROVIDERS: ADMIT Hospitalist; ATTEND Hospitalist
DX: R00.2 Palpitations (principal); R07.89 Other chest pain; R06.02 Shortness of breath; E66.9 Obesity, unspecified; Z68.36 Body mass index [BMI] 36.0-36.9, adult; M41.9 Scoliosis, unspecified; Z90.721 Acquired absence of ovaries, unilateral; Z87.42 Personal history of other diseases of the female genital tract; Z83.3 Family history of diabetes mellitus; Z83.49 Family history of other endocrine, nutritional and metabolic diseases
CPT/HCPCS: 96360; 96361; 99285; 36415; 93005; 93017; 93306; 80053; 84443; 82550; 82553; 83735; 84484; 85025; 85610; 85730; 71046; G0378 ×2; Q9950

== ENCOUNTER → 2018-12-07 | Outpatient (CLI) | payer MEDICAID ==
[2018-12-07 10:44] VITALS: BP 111/76; PULSE 84; RESP 16; TEMP 97.7; BMI 35.9
--- NOTE | 2018-12-07 11:46 | P.HPOB ---
History of Present Illness H&P Date: 12/07/18 Chief Complaint: The patient is here for her routine gynecologic exam and for control. This is a 33-year-old with an LMP of 11/24/2018. The patient has been using condoms for control. She is requesting to be restarted on Generess FE control pills. She states her menses have been slightly irregular about monthly but they can be plus or minus 7-10 days. She states she also has felt hot at times. She did have a thyroid checked done recently and this was normal according to the patient. She is otherwise without complaints. Review of Systems She has gained about 15 pounds over the past 2 years. She denies respiratory, cardiac, or GI problems. Past Medical History Past Medical History: No Reported History Additional Past Medical History / Comment(s): scoliosis. 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 History of previous dermoid cyst. History of Any Multi-Drug Resistant Organisms: None Reported Past Surgical History: No Surgical Hx Reported Additional Past Surgical History / Comment(s): right oopherectomy-dermoid 2010. 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 lives at home with her spouse, child and her father. Smoking Status: Never smoker Past Alcohol Use History: Rare (2-3 drinks per year) Past Drug Use History: None Reported Additional History: She has been since 2007 and works at [employer]. - Past Family History Mother Family Medical History: Hyperlipidemia, Thyroid Disorder Additional Family Medical History / Comment(s): endeometrosis uterus removed at age 32 Father Brother(s) Family Medical History: Diabetes Mellitus, Myocardial Infarction ([place]) Additional Family Medical History / Comment(s): Grandparents had lung cancer. Paternal aunt had breast cancer. Medications and Allergies Home Medications Medication Instructions Recorded Confirmed Type Metoprolol Tartrate 12.5 mg PO Q8HR PRN 12/07/18 12/07/18 History Allergies Allergy/AdvReac Type Severity Reaction Status Date / Time No Known Allergies Allergy Verified 12/07/18 10:38 Exam Vital Signs Temp Pulse Resp BP Pulse Ox 12/07/18 10:39 97.7 F 84 16 111/76 97 Intake and Output 12/06/18 12/07/18 12/07/18 22:59 06:59 14:59 Other: Weight 113.398 kg Height 5 feet 10 inches, weight 250 pounds, BMI 35.9. This is a well-developed well-nourished heavyset white female who is alert and oriented times 3 in no acute distress. HEENT: Within normal limits. NECK: Supple without mass or thyromegaly. CHEST AND LUNGS: Clear to auscultation. HEART: Regular rate and rhythm. BREASTS: Are without mass or discharge. AXILLARY EXAM: Negative for adenopathy. BACK: Negative for CVA tenderness. ABDOMEN: Soft, nontender, without palpable masses. PELVIC EXAM: Normal external genitalia. Cervix and vagina appear normal. There is no unusual discharge. There is no evidence of prolapse. The uterus is midposition, nongravid size and nontender. There are no palpable adnexal masses or tenderness. Bimanual examination is somewhat limited secondary to her size. RECTAL EXAM: Deferred. EXTREMITIES: Nontender. IMPRESSION: 1. 33-year-old female with normal gynecologic exam. 2. She is requesting to be restarted on oral contraception. PLAN: 1. Pap smear was deferred since she had a normal one on 02/03/2017. This will be repeated in 1 year. 2. Self breast awareness was discussed with the patient. 3. The patient will be restarted on Generess FE 1 by mouth daily and she will start this on the Thursday following the onset of her next normal menstrual period. I have recommended that she continue to use condoms through the first pack of pills. We discussed possible side effects and possible risks including possible increased risk for blood clots. The electronic prescription will be sent to [facility] at [facility]. She was also advised to check her blood pressure intermittently and call she's having blood pressure elevations. 4. She was advised to return in one year for her annual well woman exam.
== END | disposition home or self-care (01) ==
LOC: WWCWWP 10:29
PROVIDERS: ATTEND Obstetrics & Gynecology
DX: Z53.9 Procedure and treatment not carried out, unspecified reason (principal)

== ENCOUNTER → 2019-11-02 | Outpatient (CLI) | payer MEDICAID ==
[2019-11-02 08:09] VITALS: BP 130/83; RESP 18; TEMP 98.2
--- NOTE | 2019-11-02 08:49 | P.HPOB ---
History of Present Illness H&P Date: 11/02/19 Chief Complaint: The patient is here for her routine gynecologic exam. This is a 34-year-old with an LMP of 10/12/2019. The patient continues to take Layolis FE for control. She states on 10/14/2019 she developed a sharp pain in her left abdomen and pelvis that gradually resolved over the next 3 days. She is no longer experiencing the pain. She denies any urinary symptoms associated with this. She denies missing any control pills. She states she has completed her childbearing but would like to continue on with oral contraception. She is otherwise without gynecologic complaints. Review of Systems Her weight has been stable over the past year. She denies respiratory or GI problems. Cardiac: She feels that her heart rate can speed up just prior to menstrual periods. She denies chest pain. This is not causing her any significant problems. Past Medical History Past Medical History: No Reported History Additional Past Medical History / Comment(s): scoliosis. 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 History of previous dermoid cyst. History of Any Multi-Drug Resistant Organisms: None Reported Past Surgical History: No Surgical Hx Reported Additional Past Surgical History / Comment(s): right oopherectomy-dermoid 2010. 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 lives at home with her spouse, child and her father. Smoking Status: Never smoker Past Alcohol Use History: Rare (None over the past year) Past Drug Use History: None Reported Additional History: She has been since 2007 and works at [employer]. - Past Family History Mother Family Medical History: Hyperlipidemia, Thyroid Disorder Additional Family Medical History / Comment(s): endeometrosis uterus removed at age 32 Father Brother(s) Family Medical History: Diabetes Mellitus, Myocardial Infarction (NH) Additional Family Medical History / Comment(s): Grandparents had lung cancer. Paternal aunt had breast cancer. Medications and Allergies Home Medications Medication Instructions Recorded Confirmed Type Layolis Fe 1 tab PO HS 11/02/19 11/02/19 History Allergies Allergy/AdvReac Type Severity Reaction Status Date / Time No Known Allergies Allergy Verified 11/02/19 08:00 Exam Vital Signs Temp Resp BP Pulse Ox 11/02/19 08:05 98.2 F 18 130/83 98 Intake and Output 11/01/19 11/02/19 11/02/19 22:59 06:59 14:59 Other: Weight 113.852 kg Height 5 feet 10-1/2 inches, weight 251 pounds, BMI 35 This is a well-developed well-nourished heavyset white female who is alert and oriented times 3 in no acute distress. HEENT: Within normal limits. NECK: Supple without mass or thyromegaly. CHEST AND LUNGS: Clear to auscultation. HEART: Regular rate and rhythm. BREASTS: Are without mass or discharge. AXILLARY EXAM: Negative for adenopathy. BACK: Negative for CVA tenderness. ABDOMEN: Soft, nontender, without palpable masses. PELVIC EXAM: Normal external genitalia. Cervix and vagina appear normal. There is no unusual discharge. There is no evidence of prolapse. The uterus is midposition, slightly retroverted, nongravid size and nontender. There are no palpable adnexal masses. There is mild left adnexal tenderness with bimanual examination. There is no right adnexal tenderness. RECTAL EXAM: negative for mass or tenderness. EXTREMITIES: Nontender. IMPRESSION: 1. 34-year-old female doing well on Layolis FE for control. 2. Brief left pelvic pain approximately 2-3 weeks ago which has resolved. There is mild left adnexal tenderness on examination today. Differential diagnosis will include left ovarian cyst, ruptured ovarian cyst, dermoid cyst, and non-gynecologic pain. PLAN: 1. Pap smear was performed. 2. Self breast awareness was discussed with the patient. 3. Pelvic ultrasound will be scheduled. The order slip was given to the patient for this. 4. Continue oral contraception at this time. The prescription for Layolis FE will be sent to [facility] on . We have discussed other control options since she feels she has completed her childbearing. We have discussed permanent methods and she states she would like to have her get a vasectomy, but he is hesitant to do this. 5. She was advised to return in one year for her annual well woman exam and as needed.
--- NOTE | 2019-11-23 14:51 | P.PN ---
Progress Note - Text Progress Note Date: 11/23/19 OUTPATIENT FOLLOW-UP NOTE TEST(S)/RESULTS: Test results from 11/02/2019 include Pap smear showing low- grade SHAI and negative high-risk HPV testing. METHOD OF NOTIFICATION: The message with this result was left on the patient's voicemail. PATIENT COMMENTS: DIAGNOSIS: Low-grade SHAI Pap smear with negative high-risk HPV testing. DISCUSSION: The patient was in the emergency room on 11/05/2019 because of left abdominal pain and underwent a pelvic ultrasound and CT scan of the abdomen and pelvis which did not show any significant acute changes. PLAN: I will try calling the patient back next week for follow-up on her pain as well as to review the Pap smear findings and recommendations with her.
== END | disposition home or self-care (01) ==
LOC: WWCWWP 07:50
PROVIDERS: ATTEND Obstetrics & Gynecology
DX: Z53.9 Procedure and treatment not carried out, unspecified reason (principal)

== ENCOUNTER 2019-11-05 18:13 | Emergency (ER) | payer MEDICAID ==
[2019-11-05 18:19] VITALS: RESP 18
[2019-11-05] MEDS ORDERED: KETOROLAC 15 MG/ML 1 ML VIAL IVP STA (18:46)
[2019-11-05] MEDS ORDERED: SODIUM CHLORIDE 0.9% 1,000 ML IV STA (18:46)
--- NOTE | 2019-11-05 19:10 | ED ---
General Adult HPI - General Source: patient Mode of arrival: ambulatory Limitations: no limitations <Fiordaliza Pina - Last Filed: 11/05/19 22:40> <Jennifer Thomson - Last Filed: 11/06/19 12:47> - General Chief complaint: Abdominal Pain Stated complaint: Abd Pain Time Seen by Provider: 11/05/19 18:32 - History of Present Illness Initial comments: 34-year-old female presents to the emergency department with complaints of left lower abdominal/pelvic pain. Patient states she was seen by her breakfast cook this past week and had a pelvic exam due to this discomfort . Reports left ovarian tenderness during the exam and patient states her FAMILY SUPPORT COORDINATOR told her he suspected she has an ovarian cyst. Patient states she is scheduled for an ultrasound on November 16, but is unable to tolerate the pain. Patient denies any nausea, vomiting, or abnormal vaginal discharge or bleeding. Denies hematuria, dysuria, urinary frequency, urinary urgency. Patient denies any recent rash, fever, chills, cough, shortness of breath, chest pain, diarrhea, constipation, back pain, numbness, tingling, dizziness, weakness, headache, visual changes, or any other complaints. (Fiordaliza Pina) - Related Data Previous Rx's Medication Instructions Recorded Noreth-Ethinyl Estradiol/Iron 1 tab PO DAILY #84 tab 11/02/19 [Generess Fe Chewable Tablet] Allergies Allergy/AdvReac Type Severity Reaction Status Date / Time No Known Allergies Allergy Verified 11/05/19 18:15 Review of Systems ROS Other: All systems not noted in ROS Statement are negative. <Fiordaliza Pina - Last Filed: 11/05/19 22:40> ROS Other: All systems not noted in ROS Statement are negative. <Jennifer Thomson - Last Filed: 11/06/19 12:47> ROS Statement: Those systems with pertinent positive or pertinent negative responses have been documented in the HPI. Past Medical History Past Medical History: No Reported History Additional Past Medical History / Comment(s): scoliosis. 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 History of previous dermoid cyst. History of Any Multi-Drug Resistant Organisms: None Reported Past Surgical History: No Surgical Hx Reported Additional Past Surgical History / Comment(s): right oopherectomy-dermoid 2011. Past Anesthesia/Blood Transfusion Reactions: No Reported Reaction Past Psychological History: No Psychological Hx Reported Smoking Status: Never smoker Past Alcohol Use History: Rare Past Drug Use History: None Reported - Past Family History Mother Family Medical History: Hyperlipidemia, Thyroid Disorder Additional Family Medical History / Comment(s): endeometrosis uterus removed at age 32 Father Brother(s) Family Medical History: Diabetes Mellitus, Myocardial Infarction (ID) Additional Family Medical History / Comment(s): Grandparents had lung cancer. Paternal aunt had breast cancer. <Fiordaliza Pina - Last Filed: 11/05/19 22:40> General Exam Limitations: no limitations General appearance: alert, in no apparent distress, other (Well-developed, well- nourished female in no acute distress. Initial temperature 98F, pulse 89, respirations 18, blood pressure 141/87, pulse ox 98% on room air.) Respiratory exam: Present: normal lung sounds bilaterally. Absent: respiratory distress, wheezes, rales, rhonchi, stridor Cardiovascular Exam: Present: regular rate, normal rhythm, normal heart sounds. Absent: systolic murmur, diastolic murmur, rubs, gallop, clicks GI/Abdominal exam: Present: soft, tenderness (Upon palpation to the left lower quadrant), guarding (Left lower quadrant guarding, no tenderness upon palpation), normal bowel sounds Neurological exam: Present: alert, oriented X3, CN II-XII intact Psychiatric exam: Present: normal affect, normal mood Skin exam: Present: warm, dry, intact, normal color. Absent: rash <Fiordaliza Pina - Last Filed: 11/05/19 22:40> Course Vital Signs 11/05/19 11/05/19 18:15 21:34 Temperature 98 F 98.0 F Pulse Rate 89 79 Respiratory 18 18 Rate Blood Pressure 141/87 130/87 O2 Sat by Pulse 98 99 Oximetry Medical Decision Making - Lab Data Result diagrams: 11/05/19 18:47 11/05/19 18:47 - Radiology Data Radiology results: report reviewed <Fiordaliza Pina - Last Filed: 11/05/19 22:40> - Lab Data Result diagrams: 11/05/19 18:47 11/05/19 18:47 <Jennifer Thomson - Last Filed: 11/06/19 12:47> - Medical Decision Making 34-year-old female presents to the emergency Department with complaints of left lower quadrant abdominal/pelvic pain. Patient was seen by her FAMILY SUPPORT COORDINATOR this week for the same complaints and he ordered an outpatient ultrasound to be done on November 16. Patient states she is here tonight because she was instructed to go to the emergency room if her pain worsened. She denies any vaginal bleeding or discharge. States she is concerned about a possible cyst on her left ovary. Transvaginal ultrasound done during this visit showed tiny calcifications in the left ovary of unknown significance. CT of the abdomen and pelvis with contrast confirmed the presence of the calcifications and did not show any other pathological findings. Patient was given Toradol IV push, as well as a liter of normal saline, and was feeling improved upon departure. Patient was instructed to follow-up with her primary care provider for recheck in the next 1-2 days. Also instructed to see her FAMILY SUPPORT COORDINATOR Thursday to discuss further care. She is ins tructed to inform her OBGYN of the calcification in her ovary. Patient encouraged to return to the emergency department if she develops any intolerable pain, fever, or additional symptoms. Patient verbalizes understanding and agrees with this plan. (Fiordaliza Pina) I was available for consultation in the emergency department. The history and physical exam were done by the midlevel provider. I was consulted for this patients care. I reviewed the case with the midlevel provider and based on their presentation of the patient, I agree with the assessment, medical decision making and plan of care as documented. Chart was dictated using [employer] dictation software. Attempts were made to correct any dictation errors however some typographical errors may persist. Patient was seen during a national state of emergency due to the Covid-19 pandemic. (Jennifer Thomson) - Lab Data Lab Results 11/05/19 11/05/19 11/05/19 Range/Units 18:47 18:47 18:59 WBC 11.3 H (3.8-10.6) k/uL RBC 4.88 (3.80-5.40) m/uL Hgb 13.4 (11.4-16.0) gm/dL Hct 40.7 (34.0-46.0) % MCV 83.4 (80.0-100.0) fL MCH 27.5 (25.0-35.0) pg MCHC 33.0 (31.0-37.0) g/dL RDW 13.0 (11.5-15.5) % Plt Count 266 (150-450) k/uL Neutrophils % 62 % Lymphocytes % 30 % Monocytes % 5 % Eosinophils % 2 % Basophils % 1 % Neutrophils # 7.0 (1.3-7.7) k/uL Lymphocytes # 3.4 (1.0-4.8) k/uL Monocytes # 0.6 (0-1.0) k/uL Eosinophils # 0.2 (0-0.7) k/uL Basophils # 0.1 (0-0.2) k/uL Sodium 138 (137-145) mmol/L Potassium 4.3 (3.5-5.1) mmol/L Chloride 108 H (98-107) mmol/L Carbon Dioxide 21 L (22-30) mmol/L Anion Gap 9 mmol/L BUN 15 (7-17) mg/dL Creatinine 0.76 (0.52-1.04) mg/dL Est GFR (CKD-EPI)AfAm >90 (>60 ml/min/1.73 sqM) Est GFR (CKD-EPI)NonAf >90 (>60 ml/min/1.73 sqM) Glucose 102 H (74-99) mg/dL Calcium 9.5 (8.4-10.2) mg/dL Total Bilirubin 0.5 (0.2-1.3) mg/dL AST 25 (14-36) U/L ALT 20 (4-34) U/L Alkaline Phosphatase 89 (38-126) U/L Total Protein 8.0 (6.3-8.2) g/dL Albumin 4.2 (3.5-5.0) g/dL Lipase 61 (23-300) U/L Urine Color Yellow Urine Appearance Clear (Clear) Urine pH 6.0 (5.0-8.0) Ur Specific [place] 1.028 (1.001-1.035) Urine Protein Trace H (Negative) Urine Glucose (UA) Negative (Negative) Urine Ketones Negative (Negative) Urine Blood Negative (Negative) Urine Nitrite Negative (Negative) Urine Bilirubin Negative (Negative) Urine Urobilinogen <2.0 (<2.0) mg/dL Ur Leukocyte Esterase Negative (Negative) Urine HCG, Qual (Not Detectd) 11/05/19 Range/Units 18:59 WBC (3.8-10.6) k/uL RBC (3.80-5.40) m/uL Hgb (11.4-16.0) gm/dL Hct (34.0-46.0) % MCV (80.0-100.0) fL MCH (25.0-35.0) pg MCHC (31.0-37.0) g/dL RDW (11.5-15.5) % Plt Count (150-450) k/uL Neutrophils % % Lymphocytes % % Monocytes % % Eosinophils % % Basophils % % Neutrophils # (1.3-7.7) k/uL Lymphocytes # (1.0-4.8) k/uL Monocytes # (0-1.0) k/uL Eosinophils # (0-0.7) k/uL Basophils # (0-0.2) k/uL Sodium (137-145) mmol/L Potassium (3.5-5.1) mmol/L Chloride (98-107) mmol/L Carbon Dioxide (22-30) mmol/L Anion Gap mmol/L BUN (7-17) mg/dL Creatinine (0.52-1.04) mg/dL Est GFR (CKD-EPI)AfAm (>60 ml/min/1.73 sqM) Est GFR (CKD-EPI)NonAf (>60 ml/min/1.73 sqM) Glucose (74-99) mg/dL Calcium (8.4-10.2) mg/dL Total Bilirubin (0.2-1.3) mg/dL AST (14-36) U/L ALT (4-34) U/L Alkaline Phosphatase (38-126) U/L Total Protein (6.3-8.2) g/dL Albumin (3.5-5.0) g/dL Lipase (23-300) U/L Urine Color Urine Appearance (Clear) Urine pH (5.0-8.0) Ur Specific [place] (1.001-1.035) Urine Protein (Negative) Urine Glucose (UA) (Negative) Urine Ketones (Negative) Urine Blood (Negative) Urine Nitrite (Negative) Urine Bilirubin (Negative) Urine Urobilinogen (<2.0) mg/dL Ur Leukocyte Esterase (Negative) Urine HCG, Qual Not Detected (Not Detectd) - Radiology Data CT of the abdomen and pelvis with contrast was obtained. Ffindings include clear lung bases, liver, spleen, stomach, pancreas, gallbladder, appendix, and kidneys appear normal. Small calcifications in the left ovary noted. No free fluid in the pelvis. Impression per Dr. Doe include a normal appendix. No sign of acute abdomen or pelvis. Tiny calcifications in the left ovary of uncertain significance. Left ovary is not enlarged. Transvaginal ultrasound obtained due to left pelvic pain and history of ovarian cysts. Findings include an anteverted uterus, endometrium within normal limits, right ovary surgically absent, left ovary with a 0.8 cm calcification in the midportion of the ovary, no cystic lesions seen. Bilateral adnexa within normal limits. Posterior cul-de-sac within normal limits. Impression per Dr. Doe include no evidence of ovarian torsion. No significant abnormality. (Fiordaliza Pina) Disposition Is patient prescribed a controlled substance at d/c from ED?: No Time of Disposition: 21:13 <Fiordaliza Pina - Last Filed: 11/05/19 22:40> <Jennifer Thomson - Last Filed: 11/06/19 12:47> Clinical Impression: Abdominal pain Disposition: HOME SELF-CARE Condition: Good Instructions (If sedation given, give patient instructions): Abdominal Pain (ED) Additional Instructions: Take medication as directed for pain relief. Follow up with your primary care phyiscian for recheck in 1-2 days. Discuss possible referral to GI and colonoscopy. Return to the emergency department for any new, worsening, or concerning symptoms. Referrals: Greg Ruiz MD [Primary Care Provider] - 1-2 days
[2019-11-05 19:29] LABS: Basophils # (A) 0.1 k/uL (0-0.2); Basophils % (A) 1 %; Eosinophils # (A) 0.2 k/uL (0-0.7); Eosinophils % (A) 2 %; HCT 40.7 % (34.0-46.0); HGB 13.4 gm/dL (11.4-16.0); Lymphocytes # (A) 3.4 k/uL (1.0-4.8); Lymphocytes % (A) 30 %; MCH 27.5 pg (25.0-35.0); MCV 83.4 fL (80.0-100.0); Mean Platelet Volume 8.3; Monocytes # (A) 0.6 k/uL (0-1.0); Monocytes % (A) 5 %; Neutrophils % (A) 62 %; Platelet Count 266 k/uL (150-450); RBC 4.88 m/uL (3.80-5.40); WBC 11.3 k/uL (3.8-10.6)
[2019-11-05 19:38] LABS: ALT 20 U/L (4-34); AST 25 U/L (14-36); African American GFR (CKD) >90 (>60 ml/min/1.73 sqM); Albumin 4.2 g/dL (3.5-5.0); Alkaline Phosphatase 89 U/L (38-126); Anion Gap 9 mmol/L; Blood Urea Nitrogen 15 mg/dL (7-17); Calcium 9.5 mg/dL (8.4-10.2); Carbon Dioxide 21 mmol/L (22-30); Chloride 108 mmol/L (98-107); Glucose 102 mg/dL (74-99); Non-African American GFR(CKD) >90 (>60 ml/min/1.73 sqM); Potassium 4.3 mmol/L (3.5-5.1); Sodium 138 mmol/L (137-145); Total Bilirubin 0.5 mg/dL (0.2-1.3)
--- NOTE | 2019-11-05 19:55 | US ---
EXAMINATION TYPE: US transvaginal DATE OF EXAM: 11/05/2019 COMPARISON: 10/13/2015 CLINICAL HISTORY: left pelvic pain. h/o left ovarian cysts, right oophorectomy due to dermoid, on bir th control TECHNIQUE: TV. Transvaginal sonographic images Date of LMP: 10/13/2019 EXAM MEASUREMENTS: Uterus: 8.1 x 4.1 x 4.3 cm Endometrial Stripe: 0.6 cm Right Ovary: Surgically absent Left Ovary: 3.0 x 2.5 x 2.5 cm 1. Uterus: Anteverted difficult to penetrate 2. Endometrium: wnl 3. Right Ovary: Surgically absent 4. Left Ovary: 0.8cm calcification seen in mid portion of ovary, no cystic lesion seen Spectral, color and waveform doppler imaging shows good arterial and venous flow within the left ov isamar; there is no evidence for left ovarian torsion. 5. Bilateral Adnexa: wnl 6. Posterior cul-de-sac: wnl IMPRESSION: No evidence of ovarian torsion. No significant abnormality.
[2019-11-05 20:21] LABS: Appearance,Urine Clear (Clear); Bilirubin,Urine Negative (Negative); Blood,Urine Negative (Negative); Color,Urine Yellow; Glucose,Urine (UA) Negative (Negative); Ketones,Urine Negative (Negative); Leukocyte Esterase,Urine Negative (Negative); Nitrite,Urine Negative (Negative); Protein,Urine Trace (Negative); Specific Gravity,Urine 1.028 (1.001-1.035); Urobilinogen,Urine <2.0 mg/dL (<2.0)
--- NOTE | 2019-11-05 21:02 | CT ---
EXAMINATION TYPE: CT abdomen pelvis w con DATE OF EXAM: 11/05/2019 COMPARISON: 12/17/2010 HISTORY: llq pain CT DLP: 1523.2 mGycm Automated exposure control for dose reduction was used. CONTRAST: Performed with IV Contrast, patient injected with 100 mL of Isovue 300. Lung bases are clear. There is no pleural effusion. Heart size is normal. There is no pericardial eff usion. Liver spleen stomach pancreas gallbladder appear normal. Bile ducts are not dilated. There is no adrenal mass. Kidneys show satisfactory contrast opacification. There is no hydronephrosis. Delayed images show nor mal renal excretion. Ureters are not dilated. There are small calcifications in the left ovary. There is no evidence of pelvic mass. Bladder distends smoothly. Uterus is anteverted. There is no free flu id in the pelvis. There is no inguinal hernia. Appendix is posterior and appears normal. There is no mesenteric edema. There is no ascites or free a ir. There is no bowel obstruction. Lumbar vertebra have normal spacing and alignment. Posterior elements are intact. Bony pelvis is inta ct. IMPRESSION: Normal appendix. No sign of acute abdomen and pelvis. Tiny calcifications in the left ovary of uncert ain significance. Left ovary is not enlarged.
[2019-11-05 21:36] VITALS: BP 130/87; PULSE 79; TEMP 98
== END 2019-11-05 21:35 | disposition home or self-care (01) ==
LOC: EC 18:13
DX: N83.8 Other noninflammatory disorders of ovary, fallopian tube and broad ligament (principal); Z90.721 Acquired absence of ovaries, unilateral
CPT/HCPCS: 36415; 80053; 83690; 85025; 81003; 81025; 93976; 76830; 74177; 99284; 96374; 96361 ×2; J1885; Q9967

== ENCOUNTER → 2020-02-07 | Outpatient (CLI) | payer MEDICAID ==
[2020-02-07 12:13] LABS: Basophils % (A) 0 %; Eosinophils # (A) 0.1 k/uL (0-0.7); Eosinophils % (A) 2 %; HCT 42.9 % (34.0-46.0); Lymphocytes # (A) 2.8 k/uL (1.0-4.8); Lymphocytes % (A) 33 %; MCH 28.2 pg (25.0-35.0); MCHC 32.5 g/dL (31.0-37.0); MCV 86.6 fL (80.0-100.0); Mean Platelet Volume 8.3; Monocytes # (A) 0.3 k/uL (0-1.0); Monocytes % (A) 4 %; Neutrophils # (A) 5.2 k/uL (1.3-7.7); Neutrophils % (A) 60 %; Platelet Count 367 k/uL (150-450); RBC 4.96 m/uL (3.80-5.40); RDW 14.1 % (11.5-15.5); WBC 8.7 k/uL (3.8-10.6)
[2020-02-07 12:20] LABS: ALT 20 U/L (4-34); AST 21 U/L (14-36); African American GFR (CKD) >90 (>60 ml/min/1.73 sqM); Albumin 4.3 g/dL (3.5-5.0); Alkaline Phosphatase 96 U/L (38-126); Anion Gap 8 mmol/L; Blood Urea Nitrogen 14 mg/dL (7-17); Calcium 9.8 mg/dL (8.4-10.2); Carbon Dioxide 25 mmol/L (22-30); Chloride 104 mmol/L (98-107); Glucose 99 mg/dL (74-99); Non-African American GFR(CKD) >90 (>60 ml/min/1.73 sqM); Potassium 4.8 mmol/L (3.5-5.1); Sodium 137 mmol/L (137-145); Total Bilirubin 0.6 mg/dL (0.2-1.3); Total Protein 8.2 g/dL (6.3-8.2)
--- NOTE | 2020-02-07 13:58 | CT ---
EXAMINATION TYPE: CT abdomen pelvis w con DATE OF EXAM: 02/07/2020 COMPARISON: CT 11/05/2019 HISTORY: Abdominal pain CT DLP: 1686.7 mGycm Automated exposure control for dose reduction was used. TECHNIQUE: Helical acquisition of images from the lung bases through the pelvis have been completed. CONTRAST: Performed with Oral Contrast and with IV Contrast, patient injected with 100 ml mL of Isovue 300. FINDINGS: LUNG BASES: No significant abnormality is appreciated. AORTA: No significant abnormality is appreciated. LIVER/GB: Liver shows low attenuation possibly due to underlying hepatic steatosis, gallbladder is no rmal. Within the inferior right lobe of the liver there is a hypodense focus seen, coronal image 54, axial image 35 which shows apparent nodular contrast enhancement on delayed images. PANCREAS: No significant abnormality is seen. SPLEEN: No significant abnormality is seen. ADRENALS: No significant abnormality is seen. KIDNEYS: No significant abnormality is seen. REPRODUCTIVE ORGANS: The uterus shows a bulky appearance, there is some associated calcification cons istent with possible underlying exophytic fibroids towards the fundus and left adnexal region similar to prior exam BOWEL: There is some circumferential wall thickening present within the rectosigmoid region, coronal image 78, axial image #81, similar less conspicuous focus is present in the descending colon on axia l image 52, coronal image 50. No evident appendicitis. FREE AIR: No Free Air visible. ASCITES: None visible. PELVIC ADENOPATHY: None visualized. RETROPERITONEAL ADENOPATHY: No Retroperitoneal Adenopathy visible. URINARY BLADDER: No significant abnormality is seen. OSSEOUS STRUCTURES: No significant abnormality is seen. IMPRESSION: INDETERMINATE FOCUS CIRCUMFERENTIAL WALL THICKENING IN THE RECTOSIGMOID COLON, ANNULAR LESION IS NOT EXCLUDED, CONSIDER DIRECT VISUALIZATION TO EXCLUDE UNDERLYING MASS. FINDINGS COULD POSSIBLY BE DUE TO LACK OF DISTENTION. HEPATIC STEATOSIS, PROBABLE HEMANGIOMA PRESENT WITHIN THE INFERIOR RIGHT LOBE OF THE LIVER, DEDICATED LIVER MR COULD BE PERFORMED FOR BETTER EVALUATION.
== END | disposition home or self-care (01) ==
LOC: RADCTMAIN 11:20
PROVIDERS: ATTEND Nurse Practitioner Adult Health
DX: K63.89 Other specified diseases of intestine (principal); R10.9 Unspecified abdominal pain
CPT/HCPCS: 80053; 85025; 74177; 36415; Q9967

== ENCOUNTER 2020-02-24 06:32 | Day surgery (SDC) | payer MEDICAID ==
[2020-02-22 15:24] VITALS: BMI 35.9
[2020-02-24] MEDS ORDERED: LACTATED RINGERS 1,000 ML IV SCH (07:12)
[2020-02-24 07:45] VITALS: RESP 16; TEMP 98.3
[2020-02-24] MEDS ORDERED: fentaNYL (PF) 50 MCG/ML 2 ML AMP ONE (07:46)
[2020-02-24] MEDS ORDERED: MIDAZOLAM 2 MG/2 ML VIAL ONE (07:46)
[2020-02-24] MEDS ORDERED: PROPOFOL 10 MG/ML 20 ML VIAL IV ONE (07:46)
[2020-02-24] MEDS ORDERED: LIDOCAINE 1% (10MG/ML) FOR IV START INTRADERMA ONE (07:48)
--- NOTE | 2020-02-24 07:58 | P.PCN ---
Date of Procedure: 02/24/20 Procedure(s) Performed: BRIEF HISTORY: Patient is a 34-year-old pleasant white female scheduled for an elective colonoscopy as a part of evaluation of intermittent lower abdominal pain, change in bowel habits and abdominal CAT scan that showed thickening of the left colon. She also has family history of colon cancer diagnosed in her mother at age 55. PROCEDURE PERFORMED: Colonoscopy. PREOPERATIVE DIAGNOSIS: Change in bowel habits/lower abdominal pain/family history of colon cancer. IV sedation per Anesthesia. PROCEDURE: After informed consent was obtained, the patient, was brought into the endoscopy unit. IV sedation was administered by Anesthesia under continuous monitoring. Digital rectal examination was normal. Initially the Olympus CF-160 flexible video colonoscope was then inserted in the rectum, gradually advanced into the cecum without any difficulty. Careful examination was performed as the scope was gradually being withdrawn. Ileocecal valve and the appendiceal orifice were visualized and appeared normal. Prep was excellent. Mucosa of the cecum, ascending colon, transverse colon, descending colon, sigmoid colon, and rectum appeared normal. Retroflexion was performed in the rectum and no lesions were seen. The patient tolerated the procedure well. IMPRESSION: Normal-appearing colon from rectum to cecum with no evidence of colitis or colorectal neoplasia. RECOMMENDATIONS: Findings of this examination were discussed with the patient as well as her family. She was advised to have a repeat screening colonoscopy age 47 because of the strong family history of colon cancer..
[2020-02-24 08:16] VITALS: BP 130/85
[2020-02-24 08:17] VITALS: PULSE 79
== END 2020-02-24 08:40 | disposition home or self-care (01) ==
LOC: ORWHC2ENDO 06:32
PROVIDERS: ATTEND Internal Medicine Gastroenterology
DX: R19.4 Change in bowel habit (principal); R10.30 Lower abdominal pain, unspecified; R93.3 Abnormal findings on diagnostic imaging of other parts of digestive tract; Z80.0 Family history of malignant neoplasm of digestive organs; I25.10 Atherosclerotic heart disease of native coronary artery without angina pectoris; E07.9 Disorder of thyroid, unspecified; E66.9 Obesity, unspecified; A63.0 Anogenital (venereal) warts; Z79.3 Long term (current) use of hormonal contraceptives; Z68.35 Body mass index [BMI] 35.0-35.9, adult; Z90.79 Acquired absence of other genital organ(s); Z91.89 Other specified personal risk factors, not elsewhere classified
CPT/HCPCS: 81025; 45378; J2250; J3010; J2704

== ENCOUNTER → 2020-03-28 | Outpatient (CLI) | payer MEDICAID | END | disposition home or self-care (01) | LOC: RADMRIMAIN 09:05 | PROVIDERS: ATTEND Internal Medicine Gastroenterology | DX: Z53.9 Procedure and treatment not carried out, unspecified reason (principal) ==

== ENCOUNTER → 2020-11-27 | Outpatient (CLI) | payer MEDICAID ==
[2020-11-27 14:08] VITALS: BP 142/82; PULSE 78; RESP 16; TEMP 98.3
--- NOTE | 2020-11-27 14:51 | P.HPOB ---
History of Present Illness H&P Date: 11/27/20 Chief Complaint: The patient is here for her routine gynecologic exam. This is a 35-year-old with an LMP of 11/07/2020. The patient has been on Layolis control pills for control and for midcycle left pelvic pains which are still noticeable, but better while on control pills. She has been recently having premenstrual headaches. She is otherwise without complaints. Review of Systems The patient's weight has been stable over the last year. She denies respiratory, cardiac, or G.I. problems. 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 History of previous dermoid cyst status post right oophorectomy. History of Any Multi-Drug Resistant Organisms: None Reported Past Surgical History: No Surgical Hx Reported Additional Past Surgical History / Comment(s): right oopherectomy-dermoid CYST 2010. 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 lives at home with her spouse, child and her father. Smoking Status: Never smoker Past Alcohol Use History: None Reported Past Drug Use History: None Reported Additional History: She has been since 2007 and works at [employer]. - Past Family History Mother Family Medical History: Cancer, Hyperlipidemia, Thyroid Disorder Additional Family Medical History / Comment(s): endeometrosis uterus removed at age 32 Father Brother(s) Family Medical History: Diabetes Mellitus, Myocardial Infarction ([place]) Additional Family Medical History / Comment(s): Grandparents had lung cancer. Paternal aunt had breast cancer. Medications and Allergies Home Medications Medication Instructions Recorded Confirmed Type Noreth-Ethinyl Estradiol/Iron 1 tab PO DAILY 11/27/20 11/27/20 History [Layolis Fe Chewable Tablet] Allergies Allergy/AdvReac Type Severity Reaction Status Date / Time No Known Allergies Allergy Verified 11/27/20 13:55 Exam Vital Signs Temp Pulse Resp BP 11/27/20 13:58 98.3 F 78 16 142/82 Intake and Output 11/26/20 11/27/20 11/27/20 22:59 06:59 14:59 Other: Weight 113.852 kg Height 5 feet 10 inches, weight 251 pounds, BMI 36.0. Repeat blood pressure using a large blood pressure cuff was 126/76. This is a well-developed well-nourished heavyset white female who is alert and oriented times 3 in no acute distress. HEENT: Within normal limits. NECK: Supple without mass or thyromegaly. CHEST AND LUNGS: Clear to auscultation. HEART: Regular rate and rhythm. BREASTS: Are without mass or discharge. AXILLARY EXAM: Negative for adenopathy. BACK: Negative for CVA tenderness. ABDOMEN: Soft, nontender, without palpable masses. PELVIC EXAM: Normal external genitalia. Cervix and vagina appear normal. There is no unusual discharge. There is no evidence of prolapse. The uterus is midposition, nongravid size and nontender. There are no palpable adnexal masses or tenderness. RECTAL EXAM: Rectovaginal exam is negative for mass or tenderness. EXTREMITIES: Nontender. Additional studies: On 11/05/2019 patient had a negative pelvic ultrasound and negative abdominal and pelvic CT scan. IMPRESSION: 1. 35-year-old premenopausal female with improvement of midcycle left pelvic pains on oral contraception. 2. Recent premenstrual headaches. 3. Previous Pap smear on 11/02/2019 showed low-grade SHAI with negative high- risk HPV testing. PLAN: 1. Pap smear cotest was performed approximately 12 months after her prior abnormal Pap smear as above. 2. Self breast awareness was discussed with the patient. We have also discussed symptoms associated with inflammatory breast cancer. 3. We will plan on starting regular mammograms at age 42. 4. The patient will continue on oral contraception with a trial of semi- continuous administration. She was instructed to skip the inactive pills at the end of the pack 2 out of every 3 packs. She will take the inactive pills every third pack. We will see if this helps with her premenstrual headaches. The electronic prescription for her control pills will be sent to [facility] pharmacy on . 5. The patient will take her own blood pressure on a regular basis since she does have a blood pressure cuff. She was instructed to call if her blood pressures are consistently high, or if she is not having improvement with her premenstrual headaches. 6. She was advised to return in one year for her annual well woman exam and as needed.
== END | disposition home or self-care (01) ==
LOC: WWCWWP 13:45
PROVIDERS: ATTEND Obstetrics & Gynecology
DX: Z53.20 Procedure and treatment not carried out because of patient's decision for unspecified reasons (principal)

== ENCOUNTER 2021-02-20 11:41 | Emergency (ER) | payer MEDICAID ==
[2021-02-20 11:50] VITALS: TEMP 99.3
[2021-02-20] MEDS ORDERED: SODIUM CHLORIDE 0.9% 1,000 ML IV STA (11:50)
--- NOTE | 2021-02-20 12:24 | XR ---
EXAMINATION TYPE: XR chest 2V DATE OF EXAM: 02/20/2021 COMPARISON: Chest x-ray 11/16/2017 HISTORY: Dysrhythmia TECHNIQUE: Frontal and lateral views of the chest are obtained. FINDINGS: There is no focal air space opacity, pleural effusion, or pneumothorax seen. The cardiac silhouette size is within normal limits. Patient is rotated. There are overlying artifacts. Right he midiaphragm is mildly elevated, there may be a spinal curvature. The osseous structures are intact. IMPRESSION: No acute cardiopulmonary process.
--- NOTE | 2021-02-20 12:29 | ED ---
Arrhythmia/Palpitations HPI - General Chief Complaint: Arrhythmia/Palpitations Stated Complaint: Chest Tightness/Dizziness/High HR Time Seen by Provider: 02/20/21 11:50 Source: patient, family, RN notes reviewed Mode of arrival: wheelchair Limitations: no limitations - History of Present Illness Initial Comments: Patient is a 35-year-old female that presents to the emergency department complaining of palpitations that seem to be getting worse over the past week. She notes she went to her primary care who stated that it might be due to anemia for low iron. She no she can the emergency room to get evaluated. Patient notes she did not get results of her blood work back her primary care. Patient denied any increased stress or history of anxiety outside of normal. Patient was otherwise a well-appearing 35-year-old female in no apparent distress. She denied any alleviating or aggravating factors at this time. She denied any cardiac history. She denied any chest pain shortness of breath headache nausea vomiting diarrhea constipation fever fatigue chills. - Related Data Home Medications Medication Instructions Recorded Confirmed Meclizine HCl 25 mg PO TID PRN 02/20/21 02/20/21 Noreth-Ethinyl Estradiol/Iron 1 tab PO HS 02/20/21 02/20/21 [Layolis Fe Chewable Tablet] Allergies Allergy/AdvReac Type Severity Reaction Status Date / Time propranolol Allergy Rash/Hives Verified 02/20/21 13:07 Review of Systems ROS Statement: Those systems with pertinent positive or pertinent negative responses have been documented in the HPI. ROS Other: All systems not noted in ROS Statement are negative. 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 History of previous dermoid cyst status post right oophorectomy. History of Any Multi-Drug Resistant Organisms: None Reported Past Surgical History: No Surgical Hx Reported Additional Past Surgical History / Comment(s): right oopherectomy-dermoid CYST 2010. colonoscopy 01/2020 Past Anesthesia/Blood Transfusion Reactions: Postoperative Nausea & Vomiting (PONV) Past Psychological History: No Psychological Hx Reported Smoking Status: Never smoker Past Alcohol Use History: None Reported Past Drug Use History: None Reported - Past Family History Mother Family Medical History: Cancer, Hyperlipidemia, Thyroid Disorder Additional Family Medical History / Comment(s): endeometrosis uterus removed at age 32 Father Brother(s) Family Medical History: Diabetes Mellitus, Myocardial Infarction ([place]) Additional Family Medical History / Comment(s): Grandparents had lung cancer. Paternal aunt had breast cancer. General Exam Limitations: no limitations General appearance: alert, in no apparent distress, obese Head exam: Present: atraumatic, normocephalic, normal inspection Eye exam: Present: normal appearance, PERRL, EOMI. Absent: scleral icterus, conjunctival injection, periorbital swelling ENT exam: Present: normal exam, mucous membranes moist Neck exam: Present: normal inspection Respiratory exam: Present: normal lung sounds bilaterally. Absent: respiratory distress, wheezes, rales, rhonchi, stridor Cardiovascular Exam: Present: regular rate, normal rhythm, normal heart sounds. Absent: systolic murmur, diastolic murmur, rubs, gallop, clicks GI/Abdominal exam: Present: soft, normal bowel sounds. Absent: distended, tenderness, guarding, rebound, rigid Extremities exam: Present: normal inspection, full ROM, normal capillary refill. Absent: tenderness, pedal edema, joint swelling, calf tenderness Neurological exam: Present: alert, oriented X3 Psychiatric exam: Present: normal affect, normal mood Skin exam: Present: warm, dry, intact, normal color. Absent: rash Course Vital Signs 02/20/21 02/20/21 11:47 12:49 Temperature 99.3 F Pulse Rate 80 94 Respiratory 18 18 Rate Blood Pressure 130/91 111/80 O2 Sat by Pulse 97 97 Oximetry EKG Findings - EKG Comments: EKG Findings:: Ventricular rate 76 bpm, RI interval 152 ms, QRS duration 90 ms, QTC 434 ms, normal sinus rhythm, normal ECG. Medical Decision Making - Medical Decision Making 35-year-old female complaining of palpitations over the last week. Labs, EKG, chest x-ray, 1 L normal saline ordered. Chest x-ray shows no acute cardio pulmonary process. EKG is within normal limits. Labs are unremarkable within normal limits. Patient was informed of results is going to discharge home with follow-up to content architect and primary care. Case discussed with Dr. Chavez. - Lab Data Result diagrams: 02/20/21 12:22 02/20/21 12:22 Lab Results 02/20/21 02/20/21 02/20/21 Range/Units 12:22 12:22 12:22 WBC 8.8 (3.8-10.6) k/uL RBC 4.29 (3.80-5.40) m/uL Hgb 12.4 (11.4-16.0) gm/dL Hct 38.6 (34.0-46.0) % MCV 90.1 (80.0-100.0) fL MCH 29.0 (25.0-35.0) pg MCHC 32.2 (31.0-37.0) g/dL RDW 12.5 (11.5-15.5) % Plt Count 228 (150-450) k/uL MPV 9.9 Neutrophils % 66 % Lymphocytes % 26 % Monocytes % 5 % Eosinophils % 2 % Basophils % 0 % Neutrophils # 5.9 (1.3-7.7) k/uL Lymphocytes # 2.3 (1.0-4.8) k/uL Monocytes # 0.4 (0-1.0) k/uL Eosinophils # 0.2 (0-0.7) k/uL Basophils # 0.0 (0-0.2) k/uL PT 9.4 (9.0-12.0) sec INR 0.9 (<1.2) APTT 20.4 L (22.0-30.0) sec Sodium 137 (137-145) mmol/L Potassium 4.3 (3.5-5.1) mmol/L Chloride 107 (98-107) mmol/L Carbon Dioxide 21 L (22-30) mmol/L Anion Gap 9 mmol/L BUN 18 H (7-17) mg/dL Creatinine 0.74 (0.52-1.04) mg/dL Est GFR (CKD-EPI)AfAm >90 (>60 ml/min/1.73 sqM) Est GFR (CKD-EPI)NonAf >90 (>60 ml/min/1.73 sqM) Glucose 91 (74-99) mg/dL Calcium 9.1 (8.4-10.2) mg/dL Magnesium 2.0 (1.6-2.3) mg/dL Total Bilirubin 0.4 (0.2-1.3) mg/dL AST 20 (14-36) U/L ALT 20 (4-34) U/L Alkaline Phosphatase 90 (38-126) U/L Troponin I (0.000-0.034) ng/mL Total Protein 7.3 (6.3-8.2) g/dL Albumin 3.8 (3.5-5.0) g/dL TSH 1.020 (0.465-4.680) mIU/L Urine Color Urine Appearance (Clear) Urine pH (5.0-8.0) Ur Specific [place] (1.001-1.035) Urine Protein (Negative) Urine Glucose (UA) (Negative) Urine Ketones (Negative) Urine Blood (Negative) Urine Nitrite (Negative) Urine Bilirubin (Negative) Urine Urobilinogen (<2.0) mg/dL Ur Leukocyte Esterase (Negative) 02/20/21 02/20/21 Range/Units 12:22 12:46 WBC (3.8-10.6) k/uL RBC (3.80-5.40) m/uL Hgb (11.4-16.0) gm/dL Hct (34.0-46.0) % MCV (80.0-100.0) fL MCH (25.0-35.0) pg MCHC (31.0-37.0) g/dL RDW (11.5-15.5) % Plt Count (150-450) k/uL MPV Neutrophils % % Lymphocytes % % Monocytes % % Eosinophils % % Basophils % % Neutrophils # (1.3-7.7) k/uL Lymphocytes # (1.0-4.8) k/uL Monocytes # (0-1.0) k/uL Eosinophils # (0-0.7) k/uL Basophils # (0-0.2) k/uL PT (9.0-12.0) sec INR (<1.2) APTT (22.0-30.0) sec Sodium (137-145) mmol/L Potassium (3.5-5.1) mmol/L Chloride (98-107) mmol/L Carbon Dioxide (22-30) mmol/L Anion Gap mmol/L BUN (7-17) mg/dL Creatinine (0.52-1.04) mg/dL Est GFR (CKD-EPI)AfAm (>60 ml/min/1.73 sqM) Est GFR (CKD-EPI)NonAf (>60 ml/min/1.73 sqM) Glucose (74-99) mg/dL Calcium (8.4-10.2) mg/dL Magnesium (1.6-2.3) mg/dL Total Bilirubin (0.2-1.3) mg/dL AST (14-36) U/L ALT (4-34) U/L Alkaline Phosphatase (38-126) U/L Troponin I <0.012 (0.000-0.034) ng/mL Total Protein (6.3-8.2) g/dL Albumin (3.5-5.0) g/dL TSH (0.465-4.680) mIU/L Urine Color Light Yellow Urine Appearance Clear (Clear) Urine pH 5.0 (5.0-8.0) Ur Specific [place] 1.019 (1.001-1.035) Urine Protein Negative (Negative) Urine Glucose (UA) Negative (Negative) Urine Ketones Negative (Negative) Urine Blood Negative (Negative) Urine Nitrite Negative (Negative) Urine Bilirubin Negative (Negative) Urine Urobilinogen <2.0 (<2.0) mg/dL Ur Leukocyte Esterase Negative (Negative) - EKG Data -: EKG Interpreted by Pa EKG shows normal: sinus rhythm Rate: normal EKG Comments: Ventricular rate 76 bpm, RI interval 152 ms, QRS duration 90 ms, QTC 434 ms, normal sinus rhythm, normal ECG. - Radiology Data Radiology results: report reviewed, image reviewed chest xray: No acute cardiopulmonary process. Disposition Clinical Impression: Heart palpitations Disposition: HOME SELF-CARE Condition: Stable Instructions (If sedation given, give patient instructions): Heart Palpitations (ED) Additional Instructions: Please return to the Emergency Department if symptoms worsen or any other concerns. Follow-up with primary care and cardiology soon as possible. Is patient prescribed a controlled substance at d/c from ED?: No Referrals: Greg Ruiz MD [Primary Care Provider] - 1-2 days Dylan Contreras MD [STAFF PHYSICIAN] - 1-2 days Time of Disposition: 13:56
[2021-02-20 12:52] LABS: Basophils % (A) 0 %; Eosinophils # (A) 0.2 k/uL (0-0.7); Eosinophils % (A) 2 %; HCT 38.6 % (34.0-46.0); HGB 12.4 gm/dL (11.4-16.0); Lymphocytes # (A) 2.3 k/uL (1.0-4.8); Lymphocytes % (A) 26 %; MCHC 32.2 g/dL (31.0-37.0); MCV 90.1 fL (80.0-100.0); Mean Platelet Volume 9.9; Monocytes # (A) 0.4 k/uL (0-1.0); Monocytes % (A) 5 %; Neutrophils # (A) 5.9 k/uL (1.3-7.7); Neutrophils % (A) 66 %; Platelet Count 228 k/uL (150-450); RBC 4.29 m/uL (3.80-5.40); RDW 12.5 % (11.5-15.5); WBC 8.8 k/uL (3.8-10.6)
[2021-02-20 13:06] LABS: ALT 20 U/L (4-34); AST 20 U/L (14-36); African American GFR (CKD) >90 (>60 ml/min/1.73 sqM); Albumin 3.8 g/dL (3.5-5.0); Alkaline Phosphatase 90 U/L (38-126); Anion Gap 9 mmol/L; Blood Urea Nitrogen 18 mg/dL (7-17); Calcium 9.1 mg/dL (8.4-10.2); Carbon Dioxide 21 mmol/L (22-30); Chloride 107 mmol/L (98-107); Glucose 91 mg/dL (74-99); Non-African American GFR(CKD) >90 (>60 ml/min/1.73 sqM); Potassium 4.3 mmol/L (3.5-5.1); Sodium 137 mmol/L (137-145); Total Bilirubin 0.4 mg/dL (0.2-1.3); Total Protein 7.3 g/dL (6.3-8.2)
[2021-02-20 13:24] LABS: Appearance,Urine Clear (Clear); Bilirubin,Urine Negative (Negative); Blood,Urine Negative (Negative); Color,Urine Light Yellow; Glucose,Urine (UA) Negative (Negative); Ketones,Urine Negative (Negative); Leukocyte Esterase,Urine Negative (Negative); Nitrite,Urine Negative (Negative); Protein,Urine Negative (Negative); Specific Gravity,Urine 1.019 (1.001-1.035); Urobilinogen,Urine <2.0 mg/dL (<2.0)
[2021-02-20 13:41] LABS: INR 0.9 (<1.2); Prothrombin Time 9.4 sec (9.0-12.0)
[2021-02-20 13:50] LABS: Partial Thromboplastin Time 20.4 sec (22.0-30.0)
[2021-02-20 14:15] VITALS: BP 121/77; PULSE 78; RESP 16
== END 2021-02-20 14:15 | disposition home or self-care (01) ==
LOC: EC 11:41
DX: R00.2 Palpitations (principal); Z88.8 Allergy status to other drugs, medicaments and biological substances
CPT/HCPCS: 36415; 71046; 80053; 81003; 83735; 84443; 84484; 85025; 85610; 85730; 93005; 96360; 99285

== ENCOUNTER 2021-03-05 18:33 | Emergency (ER) | payer MEDICAID ==
[2021-03-05 19:01] VITALS: TEMP 99.5
--- NOTE | 2021-03-05 19:54 | XR ---
EXAMINATION TYPE: XR chest 2V DATE OF EXAM: 03/05/2021 7:47 PM COMPARISON: 02/20/2021 TECHNIQUE: Frontal view of the chest. CLINICAL INDICATION:Female, 35 years old with history of Chest pain ; FINDINGS: Lungs/Pleura: There is no evidence of pleural effusion, focal consolidation, or pneumothorax. Pulmonary vascularity: Unremarkable. Heart/mediastinum: Cardiomediastinal silhouette is unremarkable. Musculoskeletal:No acute osseous pathology. IMPRESSION: No acute cardiopulmonary disease/process.
[2021-03-05 20:22] LABS: Basophils % (A) 0 %; Eosinophils # (A) 0.2 k/uL (0-0.7); Eosinophils % (A) 2 %; HCT 37.3 % (34.0-46.0); HGB 12.1 gm/dL (11.4-16.0); Lymphocytes # (A) 3.4 k/uL (1.0-4.8); Lymphocytes % (A) 39 %; MCH 28.8 pg (25.0-35.0); MCHC 32.4 g/dL (31.0-37.0); MCV 88.7 fL (80.0-100.0); Mean Platelet Volume 8.3; Monocytes # (A) 0.4 k/uL (0-1.0); Monocytes % (A) 4 %; Neutrophils # (A) 4.5 k/uL (1.3-7.7); Neutrophils % (A) 53 %; Platelet Count 271 k/uL (150-450); WBC 8.6 k/uL (3.8-10.6)
[2021-03-05 20:27] LABS: ALT 17 U/L (4-34); AST 17 U/L (14-36); African American GFR (CKD) >90 (>60 ml/min/1.73 sqM); Albumin 3.6 g/dL (3.5-5.0); Alkaline Phosphatase 77 U/L (38-126); Anion Gap 6 mmol/L; Blood Urea Nitrogen 15 mg/dL (7-17); Calcium 8.7 mg/dL (8.4-10.2); Carbon Dioxide 24 mmol/L (22-30); Chloride 107 mmol/L (98-107); Glucose 122 mg/dL (74-99); Non-African American GFR(CKD) >90 (>60 ml/min/1.73 sqM); Potassium 3.9 mmol/L (3.5-5.1); Sodium 137 mmol/L (137-145); Total Bilirubin 0.3 mg/dL (0.2-1.3); Total Protein 7.2 g/dL (6.3-8.2)
[2021-03-05 20:29] LABS: INR 0.8 (<1.2); Prothrombin Time 9.3 sec (9.0-12.0)
[2021-03-05 20:36] LABS: Partial Thromboplastin Time 20.2 sec (22.0-30.0)
[2021-03-05] MEDS ORDERED: SODIUM CHLORIDE 0.9% 500 ML 500 ML IV ONE (22:49)
[2021-03-05] MEDS ORDERED: ONDANSETRON 4 MG/2 ML VIAL IVP STA (22:49)
[2021-03-05] MEDS ORDERED: MORPHINE SULFATE 4 MG/ML SYRINGE IVP STA (22:49)
--- NOTE | 2021-03-05 23:32 | ED ---
Chest Pain HPI - General Source: patient Mode of arrival: ambulatory Limitations: no limitations <Aydin Monique - Last Filed: 03/05/21 23:32> <Fiordaliza Pina - Last Filed: 03/06/21 02:57> - General Chief Complaint: Chest Pain Stated Complaint: Chest pain Time Seen by Provider: 03/05/21 21:49 - History of Present Illness Initial Comments: 35 year-old female patient presents to the emergency department for evaluation of chest pain. States the pain has been going on for the last couple of weeks but has been worsening. States her blood pressures have been elevated. Reports some shortness of breath. States the pain worsens with inspiration. She did recently have COVID but her chest pain started before she was infected. She states she does have an echocardiogram and stress test ordered outpatient. She has been taking an increased dose of her blood pressure medication. She denies nausea or vomiting. Denies sweats. Denies dizziness or weakness. She does take control. Patient denies any recent rash, abdominal pain, nausea, vomiting, diarrhea, constipation, back pain, numbness, tingling, dizziness, weakness, hematuria, dysuria, urinary urgency, urinary frequency, headache, visual changes, or any other complaints. (Fiordaliza Pina) - Related Data Home Medications Medication Instructions Recorded Confirmed Meclizine HCl 25 mg PO TID PRN 02/20/21 03/05/21 Noreth-Ethinyl Estradiol/Iron 1 tab PO HS 02/20/21 03/05/21 [Layolis Fe Chewable Tablet] Metoprolol Succinate [Toprol XL] 25 mg PO HS 03/05/21 03/05/21 Allergies Allergy/AdvReac Type Severity Reaction Status Date / Time propranolol Allergy Rash/Hives Verified 03/05/21 22:24 Review of Systems ROS Other: All systems not noted in ROS Statement are negative. <Aydin Monique - Last Filed: 03/05/21 23:32> ROS Other: All systems not noted in ROS Statement are negative. <Fiordaliza Pina - Last Filed: 03/06/21 02:57> ROS Statement: Those systems with pertinent positive or pertinent negative responses have been documented in the HPI. EKG Findings - EKG Results: EKG: interpreted by NATASHA WNL, sinus rhythm (Rate 75 bpm), normal axis, normal QRS, normal ST/T, no acute changes <FrantzAydin nguyen - Last Filed: 03/05/21 23:32> - EKG Comments: EKG Findings:: EKG obtained in 1921 shows normal sinus rhythm with a ventricular rate of 75, SD interval 158, QRS duration 92, QT 382, QTc 426. No evidence of ST elevation or depression. 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 History of previous dermoid cyst status post right oophorectomy. History of Any Multi-Drug Resistant Organisms: None Reported Past Surgical History: No Surgical Hx Reported Additional Past Surgical History / Comment(s): right oopherectomy-dermoid CYST 2010. colonoscopy 01/2020 Past Anesthesia/Blood Transfusion Reactions: Postoperative Nausea & Vomiting (PONV) Past Psychological History: No Psychological Hx Reported Smoking Status: Never smoker Past Alcohol Use History: None Reported Past Drug Use History: None Reported - Past Family History Mother Family Medical History: Cancer, Hyperlipidemia, Thyroid Disorder Additional Family Medical History / Comment(s): endeometrosis uterus removed at age 32 Father Brother(s) Family Medical History: Diabetes Mellitus, Myocardial Infarction ([place]) Additional Family Medical History / Comment(s): Grandparents had lung cancer. Paternal aunt had breast cancer. <KaydenAydin - Last Filed: 03/05/21 23:32> General Exam Limitations: no limitations <KaydenAydin - Last Filed: 03/05/21 23:32> Course Vital Signs 03/05/21 03/06/21 18:55 00:36 Temperature 99.5 F Pulse Rate 77 71 Respiratory 18 16 Rate Blood Pressure 135/81 141/82 O2 Sat by Pulse 100 98 Oximetry Chest Pain [facility] <Fiordaliza Pina - Last Filed: 03/06/21 02:57> - MDM 35-year-old female patient presented to the emergency department today for evaluation of chest pain area physical examination revealed clear equal lung sounds. Vital signs are unremarkable. Labs reviewed, elevated d-dimer 0.9. Troponin is normal. Chest x-ray was negative. Did perform CT chest angiography which showed no evidence for pulmonary embolism. There is a spiculated lesion in the right lung. I did discuss findings results with the patient including presence of the nodule and instructed to follow-up for repeat imaging of the nodule to ensure resolution. She is instructed to follow-up with her primary care physician, keep appointments for the echo and stress test. Return parameters were discussed in detail. She verbalizes understanding and agrees with this plan. My attending is Dr. Monique. (Fiordaliza Pina) Disposition <Aydin Monique - Last Filed: 03/05/21 23:32> Is patient prescribed a controlled substance at d/c from ED?: No Time of Disposition: 00:52 <Fiordaliza Pina - Last Filed: 03/06/21 02:57> Clinical Impression: Chest pain Disposition: HOME SELF-CARE Condition: Good Instructions (If sedation given, give patient instructions): Chest Pain (ED) Additional Instructions: Continue with plan to have echocardiogram and stress test outpatient. Follow-up with your doctor for recheck as soon as possible. Return to the emergency department for any new, worsening, or concerning symptoms. Referrals: Greg Ruiz MD [Primary Care Provider] - 1-2 days
--- NOTE | 2021-03-06 00:05 | CT ---
EXAM: CT Angiography Chest With Intravenous Contrast CLINICAL HISTORY: ITS.REASON CT Reason: Chest pain; shortness of breath; covid TECHNIQUE: Axial computed tomographic angiography images of the chest with intravenous contrast. CTDI is 22.17 mGy and DLP is 614.2 mGy-cm. This CT exam was performed using one or more of the following dose reduction techniques: automated exposure control, adjustment of the mA and/or kV according to patient size, and/or use of iterative reconstruction technique. MIP reconstructed images were created and reviewed. COMPARISON: No relevant prior studies available. FINDINGS: Pulmonary arteries: No pulmonary embolus. Aorta: No thoracic aortic dissection or aneurysm. Lungs: There are multiple focal areas of lucency noted to the parenchyma which may represent air trapping from small airways disease. There is a spiculated lesion within the superior aspect of the right lower lobe measuring up to 8 mm which may be inflammatory. No mass. Pleural space: Unremarkable. No significant effusion. No pneumothorax. Heart: Trace pericardial effusion. No evidence of RV dysfunction. Bones/joints: No acute fracture. No dislocation. Soft tissues: Unremarkable. Lymph nodes: Unremarkable. No enlarged lymph nodes. IMPRESSION: 1. No pulmonary embolus. 2. There are multiple focal areas of lucency noted to the lung parenchyma which may represent air trapping from small airways disease. 3. There is a spiculated lesion within the superior aspect of the right lower lobe measuring up to 8 mm which may be inflammatory. Consider short interval follow-up to document resolution.
[2021-03-06 00:36] VITALS: BP 141/82; PULSE 71; RESP 16
== END 2021-03-06 01:06 | disposition home or self-care (01) ==
LOC: EC 18:33
DX: R07.9 Chest pain, unspecified (principal); Z88.8 Allergy status to other drugs, medicaments and biological substances
CPT/HCPCS: 36415; 93005; 85379; 80053; 83735; 84484; 85025; 85610; 85730; 71046; 71275; 99285; 96374; 96375; J2270; J2405; Q9967

== ENCOUNTER → 2021-03-18 | Outpatient (CLI) | payer MEDICAID ==
[~2021-03-18] MED LIST: DOBUTamine DRIP for NUC MED 500 MG in DEXTROSE/WATER 1 250ML.BAG IV PRN
--- NOTE | 2021-03-18 11:54 | ECHOS ---
STRESS ECHOCARDIOGRAM DATE OF STUDY: 03/18/2021 INDICATIONS: Chest pain. BASELINE HEART RATE: @@ BASELINE BLOOD PRESSURE: @@ MAXIMUM HEART RATE: @@ MAXIMUM BLOOD PRESSURE: @@ 85% MPHR: @@ 100% MPHR: @@ METS: @@ MAXIMUM STAGE REACHED: @@ TOTAL EXERCISE TIME: @@ CLINICAL INFORMATION: STRESS DATA: Heart rate 89, pressure 154/77 mmHg. Baseline EKG showed sinus mechanism. Dobutamine infusion at the dose of 10 mcg/kg per minute was initiated and increased to 40 mcg/kg per minute. Max heart rate was 149, which is about 80% of maximum predicted heart rate, with maximum blood pressure of 147/71 mmHg. Clinically the patient did not have any symptoms of chest pain or chest discomfort during the testing or on recovery. The EKG did not show any significant ST or T-wave abnormalities concerning for ischemia. Echocardiogram images from parasternal long axis view, parasternal short axis view, apical 4-chamber and apical 2-chamber were obtained as the baseline images at the peak of the heart rate as well as on recovery. The echocardiogram images did not show any evidence of wall motion abnormalities concerning for ischemia. CONCLUSION: 1. Normal EKG in response to dobutamine. 2. Normal echocardiogram in response to dobutamine. 3. Essentially normal dobutamine stress echocardiogram for the patient. MMODL / IJN: [id number] /
== END | disposition home or self-care (01) ==
LOC: RADNMMAIN 08:51
PROVIDERS: ATTEND Family Medicine
DX: R00.2 Palpitations (principal)
CPT/HCPCS: 93351; Q9950

== ENCOUNTER 2021-04-30 08:18 | Emergency (ER) | payer MEDICAID ==
[2021-04-30 08:31] VITALS: TEMP 98.5
[2021-04-30] MEDS ORDERED: KETOROLAC 15 MG/ML 1 ML VIAL IVP STA (09:33)
[2021-04-30] MEDS ORDERED: ONDANSETRON 4 MG/2 ML VIAL IVP STA (09:33)
[2021-04-30] MEDS ORDERED: SODIUM CHLORIDE 0.9% 2,000 ML IV STA (09:33)
[2021-04-30 10:06] LABS: ALT 28 U/L (4-34); AST 26 U/L (14-36); African American GFR (CKD) >90 (>60 ml/min/1.73 sqM); Alkaline Phosphatase 99 U/L (38-126); Amylase 62 U/L (30-110); Anion Gap 9 mmol/L; Blood Urea Nitrogen 11 mg/dL (7-17); Calcium 9.2 mg/dL (8.4-10.2); Carbon Dioxide 19 mmol/L (22-30); Chloride 108 mmol/L (98-107); Glucose 103 mg/dL (74-99); Lipase 35 U/L (23-300); Non-African American GFR(CKD) 87 (>60 ml/min/1.73 sqM); Potassium 4.4 mmol/L (3.5-5.1); Sodium 136 mmol/L (137-145); Total Bilirubin 0.8 mg/dL (0.2-1.3); Total Protein 7.9 g/dL (6.3-8.2)
[2021-04-30 10:17] LABS: Amorphous Sediment,Urine Few /hpf; Appearance,Urine Cloudy (Clear); Bacteria,Urine Rare /hpf; Bilirubin,Urine Negative (Negative); Blood,Urine Negative (Negative); Color,Urine Yellow; Glucose,Urine (UA) Negative (Negative); Ketones,Urine Trace (Negative); Leukocyte Esterase,Urine Negative (Negative); Mucus,Urine Moderate /hpf; Nitrite,Urine Negative (Negative); PH, Urine 5.5 (5.0-8.0); Protein,Urine Trace (Negative); Specific Gravity,Urine 1.027 (1.001-1.035); Squamous Epithelial Cell,Urine 2 /hpf (0-4); Urobilinogen,Urine <2.0 mg/dL (<2.0); WBC,Urine 3 /hpf (0-5)
[2021-04-30 10:33] LABS: Basophils % (A) 0 %; Eosinophils # (A) 0.1 k/uL (0-0.7); Eosinophils % (A) 1 %; Lymphocytes # (A) 1.3 k/uL (1.0-4.8); Lymphocytes % (A) 14 %; MCH 29.5 pg (25.0-35.0); MCHC 33.4 g/dL (31.0-37.0); MCV 88.3 fL (80.0-100.0); Mean Platelet Volume 9.6; Monocytes # (A) 0.4 k/uL (0-1.0); Monocytes % (A) 4 %; Neutrophils # (A) 7.4 k/uL (1.3-7.7); Neutrophils % (A) 80 %; Platelet Count 282 k/uL (150-450); RBC 4.76 m/uL (3.80-5.40); WBC 9.2 k/uL (3.8-10.6)
--- NOTE | 2021-04-30 10:41 | ED ---
Abdominal Pain HPI - General Chief Complaint: Abdominal Pain Stated Complaint: abd pain Time Seen by Provider: 04/30/21 09:08 Source: patient, RN notes reviewed Mode of arrival: ambulatory Limitations: no limitations - History of Present Illness Initial Comments: This a 35-year-old female presented from chief complaint of nausea vomiting diarrhea. Symptoms have been present since Thursday. Patient states symptoms have improved. She states she feels dehydrated, we Intermittent Abdominal Cramping. Patient Wishes Exposed to Some Sick Contacts. Patient Denies Any Fevers or Chills No Prior Abdominal Surgeries Denies Any Chance Patient Offers No Other Complaints. - Related Data Home Medications Medication Instructions Recorded Confirmed Noreth-Ethinyl Estradiol/Iron 1 tab PO HS 02/20/21 04/30/21 [[place] Fe Chewable Tablet] Metoprolol Succinate [Toprol XL] 25 mg PO HS 03/05/21 04/30/21 Ferrous Sulfate [Feosol] 325 mg PO DAILY 04/30/21 04/30/21 Previous Rx's Medication Instructions Recorded Dicyclomine [Bentyl] 20 mg PO TID #21 tablet 04/30/21 Ondansetron Odt [Zofran Odt] 4 mg PO Q8HR PRN #10 tab 04/30/21 Allergies Allergy/AdvReac Type Severity Reaction Status Date / Time propranolol Allergy Rash/Hives Verified 04/30/21 10:49 Review of Systems ROS Statement: Those systems with pertinent positive or pertinent negative responses have been documented in the HPI. ROS Other: All systems not noted in ROS Statement are negative. Past Medical History Past Medical History: Hypertension Additional Past Medical History / Comment(s): scoliosis, dermoid cyst. 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 History of previous dermoid cyst status post right oophorectomy. History of Any Multi-Drug Resistant Organisms: None Reported Past Surgical History: No Surgical Hx Reported Additional Past Surgical History / Comment(s): right oopherectomy-dermoid CYST 2010. colonoscopy 01/2020 Past Anesthesia/Blood Transfusion Reactions: Postoperative Nausea & Vomiting (PONV) Past Psychological History: No Psychological Hx Reported Smoking Status: Never smoker Past Alcohol Use History: None Reported Past Drug Use History: None Reported - Past Family History Mother Family Medical History: Cancer, Hyperlipidemia, Thyroid Disorder Additional Family Medical History / Comment(s): endeometrosis uterus removed at age 32 Father Brother(s) Family Medical History: Diabetes Mellitus, Myocardial Infarction ([place]) Additional Family Medical History / Comment(s): Grandparents had lung cancer. Paternal aunt had breast cancer. General Exam Limitations: no limitations General appearance: alert, in no apparent distress Head exam: Present: atraumatic, normocephalic, normal inspection Eye exam: Present: normal appearance, PERRL, EOMI. Absent: scleral icterus, conjunctival injection, periorbital swelling ENT exam: Present: normal exam, normal oropharynx, mucous membranes moist Neck exam: Present: normal inspection, full ROM. Absent: tenderness, meningismus, lymphadenopathy Respiratory exam: Present: normal lung sounds bilaterally. Absent: respiratory distress, wheezes, rales, rhonchi, stridor Cardiovascular Exam: Present: regular rate, normal rhythm, normal heart sounds. Absent: systolic murmur, diastolic murmur, rubs, gallop, clicks GI/Abdominal exam: Present: soft, normal bowel sounds. Absent: distended, tenderness, guarding, rebound, rigid Course Vital Signs 04/30/21 08:29 Temperature 98.5 F Pulse Rate 82 Respiratory 20 Rate Blood Pressure 146/76 O2 Sat by Pulse 100 Oximetry Medical Decision Making - Medical Decision Making Patient's labs. Patient hydrated feels greatly improved patient has gastritis we discharged in stable condition. - Lab Data Result diagrams: 04/30/21 09:38 04/30/21 09:38 Lab Results 04/30/21 04/30/21 04/30/21 Range/Units 09:38 09:38 09:38 WBC 9.2 (3.8-10.6) k/uL RBC 4.76 (3.80-5.40) m/uL Hgb 14.0 (11.4-16.0) gm/dL Hct 42.0 (34.0-46.0) % MCV 88.3 (80.0-100.0) fL MCH 29.5 (25.0-35.0) pg MCHC 33.4 (31.0-37.0) g/dL RDW 13.0 (11.5-15.5) % Plt Count 282 (150-450) k/uL MPV 9.6 Neutrophils % 80 % Lymphocytes % 14 % Monocytes % 4 % Eosinophils % 1 % Basophils % 0 % Neutrophils # 7.4 (1.3-7.7) k/uL Lymphocytes # 1.3 (1.0-4.8) k/uL Monocytes # 0.4 (0-1.0) k/uL Eosinophils # 0.1 (0-0.7) k/uL Basophils # 0.0 (0-0.2) k/uL Sodium (137-145) mmol/L Potassium (3.5-5.1) mmol/L Chloride (98-107) mmol/L Carbon Dioxide (22-30) mmol/L Anion Gap mmol/L BUN (7-17) mg/dL Creatinine (0.52-1.04) mg/dL Est GFR (CKD-EPI)AfAm (>60 ml/min/1.73 sqM) Est GFR (CKD-EPI)NonAf (>60 ml/min/1.73 sqM) Glucose (74-99) mg/dL Calcium (8.4-10.2) mg/dL Total Bilirubin (0.2-1.3) mg/dL AST (14-36) U/L ALT (4-34) U/L Alkaline Phosphatase (38-126) U/L Total Protein (6.3-8.2) g/dL Albumin (3.5-5.0) g/dL Amylase (30-110) U/L Lipase (23-300) U/L Urine Color Yellow Urine Appearance Cloudy H (Clear) Urine pH 5.5 (5.0-8.0) Ur Specific Broadbent 1.027 (1.001-1.035) Urine Protein Trace H (Negative) Urine Glucose (UA) Negative (Negative) Urine Ketones Trace H (Negative) Urine Blood Negative (Negative) Urine Nitrite Negative (Negative) Urine Bilirubin Negative (Negative) Urine Urobilinogen <2.0 (<2.0) mg/dL Ur Leukocyte Esterase Negative (Negative) Urine WBC 3 (0-5) /hpf Ur Squamous Epith Cells 2 (0-4) /hpf Amorphous Sediment Few H (None) /hpf Urine Bacteria Rare H (None) /hpf Urine Mucus Moderate H (None) /hpf Urine HCG, Qual Not Detected (Not Detectd) 04/30/21 Range/Units 09:38 WBC (3.8-10.6) k/uL RBC (3.80-5.40) m/uL Hgb (11.4-16.0) gm/dL Hct (34.0-46.0) % MCV (80.0-100.0) fL MCH (25.0-35.0) pg MCHC (31.0-37.0) g/dL RDW (11.5-15.5) % Plt Count (150-450) k/uL MPV Neutrophils % % Lymphocytes % % Monocytes % % Eosinophils % % Basophils % % Neutrophils # (1.3-7.7) k/uL Lymphocytes # (1.0-4.8) k/uL Monocytes # (0-1.0) k/uL Eosinophils # (0-0.7) k/uL Basophils # (0-0.2) k/uL Sodium 136 L (137-145) mmol/L Potassium 4.4 (3.5-5.1) mmol/L Chloride 108 H (98-107) mmol/L Carbon Dioxide 19 L (22-30) mmol/L Anion Gap 9 mmol/L BUN 11 (7-17) mg/dL Creatinine 0.88 (0.52-1.04) mg/dL Est GFR (CKD-EPI)AfAm >90 (>60 ml/min/1.73 sqM) Est GFR (CKD-EPI)NonAf 87 (>60 ml/min/1.73 sqM) Glucose 103 H (74-99) mg/dL Calcium 9.2 (8.4-10.2) mg/dL Total Bilirubin 0.8 (0.2-1.3) mg/dL AST 26 (14-36) U/L ALT 28 (4-34) U/L Alkaline Phosphatase 99 (38-126) U/L Total Protein 7.9 (6.3-8.2) g/dL Albumin 4.0 (3.5-5.0) g/dL Amylase 62 (30-110) U/L Lipase 35 (23-300) U/L Urine Color Urine Appearance (Clear) Urine pH (5.0-8.0) Ur Specific Broadbent (1.001-1.035) Urine Protein (Negative) Urine Glucose (UA) (Negative) Urine Ketones (Negative) Urine Blood (Negative) Urine Nitrite (Negative) Urine Bilirubin (Negative) Urine Urobilinogen (<2.0) mg/dL Ur Leukocyte Esterase (Negative) Urine WBC (0-5) /hpf Ur Squamous Epith Cells (0-4) /hpf Amorphous Sediment (None) /hpf Urine Bacteria (None) /hpf Urine Mucus (None) /hpf Urine HCG, Qual (Not Detectd) Disposition Clinical Impression: Gastroenteritis Disposition: HOME SELF-CARE Condition: Stable Instructions (If sedation given, give patient instructions): Gastroenteritis (ED) Additional Instructions: Please return to the Emergency Department if symptoms worsen or any other concerns. Prescriptions: Dicyclomine [Bentyl] 20 mg PO TID #21 tablet Ondansetron Odt [Zofran Odt] 4 mg PO Q8HR PRN #10 tab PRN Reason: Nausea Is patient prescribed a controlled substance at d/c from ED?: No Referrals: Greg Ruiz MD [Primary Care Provider] - 1-2 days
[2021-04-30 11:18] VITALS: BP 143/80; PULSE 78; RESP 16
== END 2021-04-30 11:20 | disposition home or self-care (01) ==
LOC: EC 08:18
DX: K52.9 Noninfective gastroenteritis and colitis, unspecified (principal); I10 Essential (primary) hypertension; Z88.8 Allergy status to other drugs, medicaments and biological substances
CPT/HCPCS: 99284; 96374; 96375; 96361; 36415; 80053; 82150; 83690; 85025; 81001; 81025; J2405; J1885

== ENCOUNTER → 2021-05-03 | Outpatient (CLI) | payer MEDICAID ==
--- NOTE | 2021-05-03 11:50 | CT ---
EXAMINATION TYPE: CT abdomen pelvis wo con DATE OF EXAM: 05/03/2021 COMPARISON: 02/07/2020 HISTORY: 35 year-old female left lower quadrant pain, R10.32 CT DLP: 1159 mGycm. Automated exposure control for dose reduction was used. TECHNIQUE: Contiguous axial scanning of the abdomen and pelvis without IV contrast. Coronal and sagit yunior reconstructions performed. FINDINGS: Heart normal size without pericardial effusion. Lung bases clear without pleural effusion. Liver borderline enlarged at 17.2 cm with low-attenuation suggesting fatty infiltration. Gallbladder, adrenal glands, kidneys, spleen, and pancreas within normal limits. No dilated small bowel or free air. Trace pelvic free fluid is demonstrated. Appendix is normal. There is moderate circumferential wall thickening at the lower ascending colon with mild pericolonic fat stranding, axial image 55. Additional segments of wall thickening upper ascending colon and hepat ic flexure, for example, axial image 38. No significant stool burden. Small right lower quadrant mesenteric lymph nodes are present, some are borderline in size measuring up to 7 mm. Bladder is nondistended. Uterus anteverted. Possible mixed solid cystic mass of the left ovary measur ing 4.9 x 2.8 cm versus 3.8 x 2.7 cm on 02/07/2020. Further ultrasound evaluation recommended to furt her characterize. STORES CLERK referral and female pelvic MRI may also be needed. No pelvic lymphadenopathy . Bones: No osseous destructive process. IMPRESSION: 1. Nonspecific ascending colitis. Consider infectious causes or IBD. No abscess or free air. 2. Trace pelvic free fluid could be physiologic or could be reactive to the above inflammation. 3. Mixed solid cystic mass probably arising from the left ovary measuring 4.9 x 2.8 cm (versus 3.8 x 2.7 cm on 02/07/2020). An epithelial ovarian neoplasm is not excluded. Ultrasound evaluation recomme nded to further characterize. STORES CLERK referral and possible female pelvic MRI may also be needed. 4. Borderline hepatomegaly (17.2 cm) with mild hepatic steatosis.
== END | disposition home or self-care (01) ==
LOC: RADCTMAIN 11:06
PROVIDERS: ATTEND Family Medicine
DX: K52.9 Noninfective gastroenteritis and colitis, unspecified (principal)
CPT/HCPCS: 74176

== ENCOUNTER → 2021-06-06 | Outpatient (CLI) | payer MEDICAID | END | disposition home or self-care (01) | LOC: LABWHC1 11:12 | PROVIDERS: ATTEND Obstetrics & Gynecology Obstetrics | DX: N83.202 Unspecified ovarian cyst, left side (principal) | CPT/HCPCS: 36415 ==

== ENCOUNTER → 2021-09-21 | Outpatient (CLI) | payer MEDICAID ==
[2021-09-21 17:22] LABS: Basophils # (A) 0.04 X 10*3/uL (0.00-0.10); Basophils % (A) 0.5 %; Eosinophils # (A) 0.17 X 10*3/uL (0.04-0.35); Eosinophils % (A) 2.3 %; HCT 41.7 % (37.2-46.3); HGB 13.3 g/dL (12.0-15.0); Immature Grans, Automated 0.1 %; Lymphocytes # (A) 2.88 X 10*3/uL (0.90-5.00); Lymphocytes % (A) 38.3 %; MCH 27.7 pg (27.0-32.0); MCHC 31.9 g/dL (32.0-37.0); MCV 86.9 fL (80.0-97.0); Mean Platelet Volume 12.5 fL (9.5-12.2); Monocytes # (A) 0.46 X 10*3/uL (0.20-1.00); Monocytes % (A) 6.1 %; NRBC Per 100 WBC 0 /100 WBCS (0.0-0.0); Neutrophils # (A) 3.96 X 10*3/uL (1.80-7.70); Neutrophils % (A) 52.7 %; Platelet Count 257 X 10*3/uL (140-440); RDW 13.2 % (11.5-14.5); WBC 7.52 X 10*3/uL (4.50-10.00)
[2021-09-21 19:07] LABS: African American GFR (CKD) 111.5 (60.0-200.0); Anion Gap 14.7 mmol/L (10.00-18.00); Carbon Dioxide 21.3 mmol/L (20.0-27.5); Non-African American GFR(CKD) 96.2 (60.0-200.0); Potassium 4.3 mmol/L (3.5-5.5)
== END | disposition home or self-care (01) ==
LOC: LABPAT 08:56
PROVIDERS: ATTEND Obstetrics & Gynecology Obstetrics
DX: Z01.812 Encounter for preprocedural laboratory examination (principal); D36.9 Benign neoplasm, unspecified site; R87.612 Low grade squamous intraepithelial lesion on cytologic smear of cervix (LGSIL)
CPT/HCPCS: 80051; 82565; 82947; 84520; 85025; 87086; 93005

== ENCOUNTER → 2022-05-26 | Outpatient (CLI) | payer MEDICAID ==
--- NOTE | 2022-05-26 15:26 | CT ---
EXAMINATION TYPE: CT abdomen pelvis wo con DATE OF EXAM: 05/26/2022 COMPARISON: 05/03/2021 HISTORY: Bloating, abdominal tenderness. Hx of colitis. CT DLP: 1170 mGycm Examination of the solid and hollow viscera is limited given the lack of contrast. FINDINGS: LUNG BASES: No evidence for nodule. No evidence for infiltrate. LIVER/GB: Mild hepatic steatosis. The gallbladder is unremarkable. No space-occupying hepatic lesion. PANCREAS: No pancreatic mass identified. No inflammatory process seen. SPLEEN: No evidence for splenomegaly. No intrasplenic lesions seen. ADRENALS: No adrenal nodules identified. No evidence for thickening. KIDNEYS: No evidence for renal mass. No nephrolithiasis. No hydronephrosis. BOWEL: Appendix has a normal appearance. No evidence of bowel obstruction. No inflammatory process. Lymph nodes: No evidence for adenopathy greater than 1 cm. Abdominal aorta: Atheromatous changes seen. No evidence for aneurysm. Genital organs: No significant abnormality. Other: No significant abnormality. IMPRESSION: NO SIGNIFICANT ABNORMALITY TO ACCOUNT FOR THE PATIENT'S SYMPTOMS.
[2022-05-26 21:44] LABS: Basophils # (A) 0.02 X 10*3/uL (0.00-0.10); Basophils % (A) 0.2 %; Eosinophils # (A) 0.04 X 10*3/uL (0.04-0.35); Eosinophils % (A) 0.5 %; HCT 41.5 % (37.2-46.3); HGB 13.3 g/dL (12.0-15.0); Immature Grans, Automated 0.2 %; Lymphocytes # (A) 2.16 X 10*3/uL (0.90-5.00); Lymphocytes % (A) 26.7 %; MCV 87.4 fL (80.0-97.0); Mean Platelet Volume 12.1 fL (9.5-12.2); Monocytes # (A) 0.61 X 10*3/uL (0.20-1.00); Monocytes % (A) 7.5 %; NRBC Per 100 WBC 0 /100 WBCS (0.0-0.0); Neutrophils # (A) 5.23 X 10*3/uL (1.80-7.70); Neutrophils % (A) 64.9 %; Platelet Count 268 X 10*3/uL (140-440); RBC 4.75 X 10*6/uL (4.10-5.20); RDW 14.1 % (11.5-14.5); WBC 8.08 X 10*3/uL (4.50-10.00)
[2022-05-26 23:25] LABS: Erythrocyte Sedimentation Rate 54 mm/Hr (0-20)
[2022-05-27 02:18] LABS: Albumin 4.3 g/dL (3.8-4.9); Albumin/Globulin Ratio 1.33 (1.60-3.17); Anion Gap 13.3 mmol/L (10.00-18.00); BUN/Creat Ratio 19.49 Ratio (12.00-20.00); Blood Urea Nitrogen 15.2 mg/dL (9.0-27.0); C Reactive Protein 2.1 mg/dL (0.00-0.80); Calcium 9.7 mg/dL (8.7-10.3); Carbon Dioxide 23.9 mmol/L (20.0-27.5); Globulin 3.3 g/dL (1.6-3.3); Non-African American GFR(CKD) 99.2 (60.0-200.0); Potassium 4.1 mmol/L (3.5-5.5); Total Bilirubin 0.4 mg/dL (0.30-1.20); Total Protein 7.6 g/dL (6.2-8.2)
== END | disposition home or self-care (01) ==
LOC: RADCTMAIN 14:54
PROVIDERS: ATTEND Family Medicine
DX: R10.31 Right lower quadrant pain (principal); K52.9 Noninfective gastroenteritis and colitis, unspecified
CPT/HCPCS: 74176; 80053; 82150; 83690; 85025; 85652; 86140

== ENCOUNTER → 2023-05-01 | Outpatient (CLI) | payer MEDICAID ==
--- NOTE | 2023-05-01 10:35 | US ---
EXAMINATION TYPE: US abdomen complete DATE OF EXAM: 05/01/2023 COMPARISON: CT 05/26/2022 CLINICAL INDICATION: Female, 37 years old with history of R74.8 ABNORMAL LEVELS OF OTHER SERUM ENZYME S; TECHNIQUE: Multiple sonographic images of the abdomen are obtained. FINDINGS: EXAM MEASUREMENTS: Liver Length: 18.5 cm Gallbladder Wall: 0.20 cm CBD: Obscured Spleen: 9.5 cm Right Kidney: 11.4 x 5.6 x 4.8 cm Left Kidney: 11.9 x 5.5 x 5.3 cm TOBACCO HANGER NOTES: Exam is limited due to gas. Pancreas: Limited due to gas. Liver: Appears enlarged. Very coarse and heterogeneous. *Indistinct, hypoechoic area seen adjacent to the gallbladder: 2.3 x 1.6 x 2.0 cm compatible focal fa tty sparing. Gallbladder: Appears wnl Evidence for sonographic Christine's sign: No CBD: Obscured Spleen: Appears wnl Right Kidney: No hydronephrosis or masses seen Left Kidney: No hydronephrosis or masses seen Upper IVC: Limited visibility Abd Aorta: Appears wnl, iliacs were obscured. IMPRESSION: 1. Hepatomegaly with hepatic steatosis with focal fatty sparing. No suspicious observations. 2. No evidence for acute process.
== END | disposition home or self-care (01) ==
LOC: RADUSWWP 08:53
PROVIDERS: ATTEND Family Medicine
DX: K76.0 Fatty (change of) liver, not elsewhere classified (principal); R74.8 Abnormal levels of other serum enzymes; R16.0 Hepatomegaly, not elsewhere classified
CPT/HCPCS: 76700

== ENCOUNTER 2023-08-03 11:18 | Emergency (ER) | payer MEDICAID ==
[2023-08-03 11:25] VITALS: TEMP 98.2
--- NOTE | 2023-08-03 12:09 | ED ---
Chest Pain HPI - General Chief Complaint: Chest Pain Stated Complaint: Chest tightness,SOB Time Seen by Provider: 08/03/23 11:30 Source: patient, RN notes reviewed Mode of arrival: ambulatory Limitations: no limitations - History of Present Illness Initial Comments: This is a 38-year-old female with a history of hypertension presents emergency department chief complaint of chest discomfort over the past few days. Patient states that she has had a anterior chest tightness. Taking a heart rate. She contacted her primary care provider with concerns to report emergency department for further evaluation. Patient denies dyspnea, palpitations, dizziness, lightheadedness. States that she felt fatigued over the past few days. Patient is currently on metoprolol and losartan at home for blood pressure management. States that she does not check her blood pressures at home. She denies history of CO, CVA. - Related Data Home Medications Medication Instructions Recorded Confirmed Metoprolol Succinate [Toprol XL] 25 mg PO HS 03/05/21 08/03/23 Losartan Potassium 50 mg PO HS 08/03/23 08/03/23 Tirzepatide [Zepbound] 5 mg SQ SA 08/03/23 08/03/23 Allergies Allergy/AdvReac Type Severity Reaction Status Date / Time propranolol Allergy Rash/Hives Verified 08/03/23 13:11 Review of Systems ROS Statement: Those systems with pertinent positive or pertinent negative responses have been documented in the HPI. ROS Other: All systems not noted in ROS Statement are negative. Past Medical History Past Medical History: Hypertension Additional Past Medical History / Comment(s): scoliosis, dermoid cyst. 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 History of previous dermoid cyst status post right oophorectomy. History of Any Multi-Drug Resistant Organisms: None Reported Past Surgical History: No Surgical Hx Reported Additional Past Surgical History / Comment(s): right oopherectomy-dermoid CYST 2010. colonoscopy 01/2020 Past Anesthesia/Blood Transfusion Reactions: Postoperative Nausea & Vomiting (PONV) Past Psychological History: No Psychological Hx Reported Smoking Status: Never smoker Past Alcohol Use History: None Reported Past Drug Use History: None Reported - Past Family History Mother Family Medical History: Cancer, Hyperlipidemia, Thyroid Disorder Additional Family Medical History / Comment(s): endeometrosis uterus removed at age 32 Father Brother(s) Family Medical History: Diabetes Mellitus, Myocardial Infarction ([place]) Additional Family Medical History / Comment(s): Grandparents had lung cancer. Paternal aunt had breast cancer. General Exam Limitations: no limitations General appearance: alert, in no apparent distress, anxious Head exam: Present: atraumatic, normocephalic, normal inspection Eye exam: Present: normal appearance, PERRL, EOMI. Absent: scleral icterus, conjunctival injection, periorbital swelling ENT exam: Present: normal exam, mucous membranes moist Neck exam: Present: normal inspection. Absent: tenderness, meningismus, lymphadenopathy Respiratory exam: Present: normal lung sounds bilaterally. Absent: respiratory distress, wheezes, rales, rhonchi, stridor Cardiovascular Exam: Present: regular rate, normal rhythm, normal heart sounds. Absent: systolic murmur, diastolic murmur, rubs, gallop, clicks GI/Abdominal exam: Present: soft, normal bowel sounds. Absent: distended, tenderness, guarding, rebound, rigid Extremities exam: Present: normal inspection, full ROM, normal capillary refill. Absent: tenderness, pedal edema, joint swelling, calf tenderness Back exam: Present: normal inspection Neurological exam: Present: alert, oriented X3, CN II-XII intact Psychiatric exam: Present: normal affect, normal mood Skin exam: Present: warm, dry, intact, normal color. Absent: rash Course Vital Signs 08/03/23 08/03/23 08/03/23 11:23 13:00 13:30 Temperature 98.2 F Pulse Rate 63 61 62 Respiratory 20 18 18 Rate Blood Pressure 143/86 115/87 122/73 O2 Sat by Pulse 99 100 99 Oximetry 08/03/23 14:00 Temperature Pulse Rate 60 Respiratory 18 Rate Blood Pressure 118/70 O2 Sat by Pulse 100 Oximetry Chest Pain MDM - MDM Was pt. sent in by a medical professional or institution (, PA, SQL CONSULTANT, urgent care, hospital, or fdc...) When possible be specific @ -No Did you speak to anyone other than the patient for history (EMS, parent, family, police, friend...)? What history was obtained from this source @ -No Did you review nursing and triage notes (agree or disagree)? Why? @ -I reviewed and agree with nursing and triage notes Were old charts reviewed (outside hosp., previous admission, EMS record, old EKG, old radiological studies, urgent care reports/EKG's, fdc records)? Report findings @ -No old charts were reviewed Differential Diagnosis (chest pain, altered mental status, abdominal pain women, abdominal pain men, vaginal bleeding, weakness, fever, dyspnea, syncope, headache, dizziness, GI bleed, back pain, seizure, CVA, palpatations, mental health, musculoskeletal)? @ -Differential Chest Pain: Stable Angina, Unstable Angina, STEMI, NSTEMI Aortic Dissection, Pneumothorax, Musculoskeletal, Esophageal Spasm GERD, Cholecystitis, Pancreatitis, Zoster, this is not meant to be an all-inclusive list. EKG interpreted by me (3pts min.). @ - Sinus bradycardia sinus arrhythmia, ventricular rate 57, NE interval 154, QTc 403. No acute signs of ischemia. X-rays interpreted by me (1pt min.). @ -chest xray No acute cardiopulmonary process or disease. CT interpreted by me (1pt min.). @ -None done U/S interpreted by me (1pt. min.). @ -None done What testing was considered but not performed or refused? (CT, X-rays, U/S, labs)? Why? @ -None What meds were considered but not given or refused? Why? @ -None Did you discuss the management of the patient with other professionals (professionals i.e. , PA, SQL CONSULTANT, lab, RT, psych nurse, community mental health social worker, bone grinder, teacher, customs and border protection officer, case checker)? Give summary @ -No Was smoking cessation discussed for >3mins.? @ -No Was critical care preformed (if so, how long)? @ -No Were there social determinants of health that impacted care today? How? (Homelessness, low income, unemployed, alcoholism, drug addiction, transportation, low edu. Level, literacy, decrease access to med. care, fdc, rehab)? @ -No Was there de-escalation of care discussed even if they declined (Discuss DNR or withdrawal of care, Hospice)? DNR status @ -No What co-morbidities impacted this encounter? (DM, HTN, Smoking, COPD, CAD, Cancer, CVA, ARF, Chemo, Hep., AIDS, mental health diagnosis, sleep apnea, morbid obesity)? @ -None Was patient admitted / discharged? Hospital course, mention meds given and route, prescriptions, significant lab abnormalities, going to OR and other pertinent info. @ -discharged. 38-year-old female with anterior chest wall pain over the past few days. On examination there are no acute cardiopulmonary deficits noted. EKG unremarkable. At this time patient will be evaluated via cardiac workup including labs, urinalysis, and chest x-ray. Patient is in agreement with this plan. Currently patient states that she is not experiencing any chest pain or d iscomfort and therefore no medications were given. CBC, CMP, coagulation profile unremarkable. Troponin nonelevated at less than 0.012. Urinalysis unremarkable, urine hCG not detected. Discussion with patient at bedside that laboratory studies have all been unremarkable, Additionally patient;s HEART score is 1 point and is low score therefor very low liklihood of a adverse cardiac event occuring over the next 6 weeks. Was recommended that the patient follows up with her primary care provider for reevaluation of her medications. She states that she is lost quite a bit of weight over the past few months and her antihypertensive medication has stayed the same regimen over the past few years. Additionally recommend the patient continue to monitor her blood pressure at home, she states that she does have a cuff at home. All questions have been answered at bedside and strict return parameters To the patient she is verbalized understanding. Case discussed with Dr. Flores. Undiagnosed new problem with uncertain prognosis? @ -No Drug Therapy requiring intensive monitoring for toxicity (Heparin, Nitro, Insulin, Cardizem)? @ -No Were any procedures done? @ -No Diagnosis/symptom? @ -chest pain Acute, or Chronic, or Acute on Chronic? @ -Acute Uncomplicated (without systemic symptoms) or Complicated (systemic symptoms)? @ -Uncomplicated Side effects of treatment? @ -No Exacerbation, Progression, or Severe Exacerbation? @ -No Poses a threat to life or bodily function? How? (Chest pain, [place], CO, pneumonia, PE, COPD, DKA, ARF, appy, cholecystitis, CVA, Diverticulitis, Homicidal, Suicidal, threat to staff... and all critical care pts) @ -Likely at this time, patient's heart score is low additionally workup nonconcerning for any acute findings at this time. Disposition Clinical Impression: Chest pain, precordial, Chest tightness Disposition: HOME SELF-CARE Condition: Good Instructions (If sedation given, give patient instructions): Chest Pain (ED) Additional Instructions: Return to the emergency department if your symptoms worsen or do not improve. Follow-up with your primary care provider this week for further evaluation. Is patient prescribed a controlled substance at d/c from ED?: No Referrals: Greg Ruiz MD [Primary Care Provider] - 1-2 days Time of Disposition: 14:22
[2023-08-03 12:57] LABS: Basophils # (A) 0.1 k/uL (0-0.2); Basophils % (A) 1 %; Eosinophils # (A) 0.3 k/uL (0-0.7); Eosinophils % (A) 4 %; HCT 41.4 % (34.0-46.0); HGB 13.2 gm/dL (11.4-16.0); Lymphocytes # (A) 2.7 k/uL (1.0-4.8); Lymphocytes % (A) 33 %; MCH 28.4 pg (25.0-35.0); MCHC 31.9 g/dL (31.0-37.0); MCV 89.2 fL (80.0-100.0); Mean Platelet Volume 10.6; Monocytes # (A) 0.5 k/uL (0-1.0); Monocytes % (A) 7 %; Neutrophils # (A) 4.4 k/uL (1.3-7.7); Neutrophils % (A) 54 %; Platelet Count 233 k/uL (150-450); RBC 4.64 m/uL (3.80-5.40); RDW 13.1 % (11.5-15.5); WBC 8.1 k/uL (3.8-10.6)
[2023-08-03 13:05] LABS: Appearance,Urine Clear (Clear); Bilirubin,Urine Negative (Negative); Blood,Urine Negative (Negative); Color,Urine Light Yellow; Glucose,Urine (UA) Negative (Negative); Ketones,Urine Negative (Negative); Leukocyte Esterase,Urine Negative (Negative); Nitrite,Urine Negative (Negative); Protein,Urine Negative (Negative); Specific Gravity,Urine 1.022 (1.001-1.035); Urobilinogen,Urine <2.0 mg/dL (<2.0)
[2023-08-03 13:08] LABS: INR 0.9 (<1.2); Partial Thromboplastin Time 23.3 sec (22.0-30.0); Prothrombin Time 9.8 sec (10.0-12.5)
[2023-08-03 13:17] LABS: ALT 41 U/L (4-34); AST 27 U/L (14-36); African American GFR (CKD) >90 (>60 ml/min/1.73 sqM); Albumin 4.5 g/dL (3.5-5.0); Alkaline Phosphatase 154 U/L (38-126); Anion Gap 5 mmol/L; Blood Urea Nitrogen 16 mg/dL (7-17); Calcium 9.7 mg/dL (8.4-10.2); Carbon Dioxide 28 mmol/L (22-30); Chloride 108 mmol/L (98-107); Glucose 86 mg/dL (74-99); Non-African American GFR(CKD) >90 (>60 ml/min/1.73 sqM); Potassium 4.4 mmol/L (3.5-5.1); Sodium 141 mmol/L (137-145); Total Bilirubin 0.6 mg/dL (0.2-1.3); Total Protein 7.9 g/dL (6.3-8.2)
[2023-08-03 13:25] VITALS: RESP 18
--- NOTE | 2023-08-03 13:44 | XR ---
EXAMINATION TYPE: XR chest 2V DATE OF EXAM: 08/03/2023 1:37 PM CLINICAL INDICATION:Female, 38 years old with history of CP; [facility] COMPARISON: None TECHNIQUE: XR chest 2V Frontal and lateral views of the chest. FINDINGS: Lungs/Pleura: There is no evidence of pleural effusion, focal consolidation, or pneumothorax. Pulmonary vascularity: Unremarkable. Heart/mediastinum: Cardiomediastinal silhouette is unremarkable. Musculoskeletal: No acute osseous pathology. IMPRESSION: No acute cardiopulmonary disease/process.
[2023-08-03 14:31] VITALS: BP 118/70; PULSE 60
== END 2023-08-03 14:36 | disposition home or self-care (01) ==
LOC: EC 11:18
DX: I49.8 Other specified cardiac arrhythmias (principal); R00.1 Bradycardia, unspecified; Z88.8 Allergy status to other drugs, medicaments and biological substances
CPT/HCPCS: 36415; 71046; 80053; 81003; 81025; 83735; 84484; 85025; 85610; 85730; 99285

== ENCOUNTER → 2023-12-01 | Outpatient (CLI) | payer MEDICAID ==
--- NOTE | 2023-12-01 12:15 | CA ---
Stress Echo Report Digna Lomeli Age: 38 Gender: F : 1985 Exam Date: 12/01/2023 10:21 Exam Location: [facility] Ht (in): 70 Wt (lb): 245 Ordering Physician: Dylan Contreras MD ([id number]) Referring Physician: DYLAN CONTRERAS,, Internal Control Consultant: JOSE Technologist Procedure CPT: Indication: R07.9 CHEST PAIN ICD-9 Codes: Rhythm: Patient History: CHEST PAIN, HTN, HYPERCHOLESTEROLEMIA, FAMILY HX OF HEART DISEASE Cardiac Medications: LOSARTAN, ATORVASTATIN Medications in past 24 hours: Contrast: Stress Results Protocol: Edward Total dose(mL): Exercise Duration (min:sec): 6:[address] Depression (mm): Angina Score: Mcmullen Score: METS: 7.7 Resting HR: 94 Resting BP: 155 / 98 Peak HR: 146 Peak BP: 196 / 78 Max Predicted HR: 184 79 % Max Predicted HR Target HR: 156 Double Product: [id number] Stress Summary: BP Response: Reason for Termination: KNEE DISCOMFORT/UNABLE TO CONTINUE Cardiac Symptoms: NO SYMPTOMS ECG Analysis Resting ECG: Stress ECG: Arrhythmia: Echo Analysis Resting Echo: Peak Echo Analysis: MEASUREMENTS (Male/Female) Normal Values CONCLUSIONS Baseline EKG revealed a normal sinus rhythm with poor R-wave progression. Patient walked on a standard Edward protocol for 6 minutes 22 seconds and achieved a maximum heart rate of 146 bpm and developed discomfort in the knee and therefore stress test was stopped. She did not have anginal symptoms. Maximum heart rate was about 79-80%. No EKG changes to suggest ischemia. No arrhythmia. This is technically an inconclusive stress test because of inadequate chronotropic response but no symptoms to suggest ischemia and no EKG changes to indicate ischemia datable mention stress level Dr. Lety Chaidez MD (Electronically Signed) Final Date: 01 December 2023 12:15
== END | disposition home or self-care (01) ==
LOC: RADNMMAIN 09:53
PROVIDERS: ATTEND Internal Medicine Interventional Cardiology
DX: R07.9 Chest pain, unspecified (principal)
CPT/HCPCS: 93351